=== PATIENT | female | born 1970 | race Caucasian/White ===

== ENCOUNTER 2019-07-04 17:38 | Emergency (ER) | payer MEDICARE, SELFPAY ==
[2019-07-04] VITALS (9 sets, daily range): BP systolic 113–167; BP diastolic 79–106; PULSE 85–126; RESP 17–20; TEMP 36.6; O2SAT 96–100; BMI 35.7
--- NOTE | 2019-07-04 17:42 | ED_ITS ---
Entered by Kp Jim, acting as scribe for Fer Ovalle DO Documented by User: Tessie Curtis 07/04/19 22:28 HPI - Nausea/Vomiting/Diarrhea General: Chief complaint: Abdominal Pain Stated complaint: abd pain Time Seen by Provider: 07/04/19 17:39 [facility] ED PFSH: Statuses (acute, chronic, etc) shown below reflect problem list status as previously entered and may not be historically accurate Social History (Updated 07/04/19 @ 17:48 by Kp Jim) Smoking and tobacco status: heavy tobacco smoker Course Vital Signs: Vital signs: Vital Signs Temperature 97.8 F 07/04/19 17:39 Pulse Rate 85 07/04/19 23:50 Respiratory Rate 18 07/04/19 23:50 Blood Pressure 119/79 07/04/19 23:50 Pulse Oximetry 99 07/04/19 23:50 MDM - Nausea/Vomiting/Diarrhea MDM Narrative: Medical decision making narrative: 2023 -the patient is feeling better at this time. Her diarrhea has slowed. Her diarrhea is nonbloody and she has not been exposed to any recent C. difficile or has she been on any antibiotics recently. I will give her some more medicine for pain and nausea before going. I will give her 1 dose of Cipro which should help shorten the course of this illness. I will send her home with medicine for nausea and diarrhea. The patient states that she is feeling better and would like to go home. Her repeat exam by me shows no signs of peritonitis on exam, her heart rate is regular with a normal rate. She has no shortness of breath or re spiratory distress. And her mentation is normal. Her abdomen is nontender there is no sign of peritonitis. The patient does understand she will need to return if she worsens but at this time she is feeling better and is ready to go home. Lab Data: Attestation: I reviewed the patient's lab results. Labs: Lab Results 07/04/19 07/04/19 07/04/19 Range/Units 18:13 18:13 18:13 WBC 10.1 H (4.0-10.0) 10^3/ uL RBC 5.02 (4.1-5.3) 10^6/u L Hgb 14.8 (11.5-15.3) g/dL Hct 46.0 (37.0-47.0) % MCV 91.6 (81-99) fL MCH 29.5 (28.0-34.0) pg MCHC 32.2 (30.0-36.0) g/dL RDW 12.4 (12.1-15.1) % Plt Count 302 (130-400) 10^3/c mm MPV 10.2 (7.4-10.4) fL Neut % (Auto) 68.3 % Lymph % (Auto) 17.7 % [place] % (Auto) 9.3 % Eos % (Auto) 3.8 % Baso % (Auto) 0.4 % Neut # (Auto) 6.9 (1.8-7.7) 10^3/u L Lymph # (Auto) 1.8 (0.8-4.8) 10^3/u L [place] # (Auto) 0.9 (0.2-0.9) 10^3/u L Eos # (Auto) 0.4 (0.0-0.8) 10^3/u L Baso # (Auto) 0.0 (0.0-0.1) 10^3/u L Nucleated RBC % (a uto) 0 % Nucleated RBCs # 0.0 /100WBC Sodium 138 (136-145) mmol/L Potassium 3.7 (3.5-5.1) mmol/L Chloride 105 (98-107) mmol/L Carbon Dioxide 17 L (22-29) mmol/L Anion Gap 19.7 H (5-19) BUN 22 H (6-20) mg/dL Creatinine 0.8 (0.5-0.9) mg/dL GFR Calculation 76.6 L (90-130) mL/min Glucose 80 (74-109) mg/dL Calcium 10.1 H (8.6-10.0) mg/Dl Total Bilirubin 0.2 (0.15-1.2) mg/dL AST 22 (0-32) U/L ALT 26 (0-33) U/L Alkaline Phosphata se 95 (35-105) IU/L Total Protein 7.7 (6.6-8.7) g/dL Albumin 4.3 (3.5-5.2) g/dL Globulin 3.4 (1.3-4.6) g/dL Lipase 29 (13-60) U/L Ser , Marlene i-Qnt 3.53 mIU/mL Urine Color (Yellow) Urine Appearance (CLEAR) Urine pH (5-7) Ur Specific Gravit y (1.005-1.030) Urine Protein (Negative) Urine Glucose (UA) (Normal) Urine Ketones (Negative) Urine Occult Blood (Negative) Urine Nitrate (Negative) Urine Bilirubin (NEGATIVE) Urine Urobilinogen (Negative) mg/dL Ur Leukocyte Elizabeth ase (Negative) Urine RBC (0-2) /hpf Urine WBC (0-5) /hpf Ur Squamous Epith Cells (0-5) Urine Bacteria (NONE) Urine Mucus 07/04/19 Range/Units 21:20 WBC (4.0-10.0) 10^3/ uL RBC (4.1-5.3) 10^6/u L Hgb (11.5-15.3) g/dL Hct (37.0-47.0) % MCV (81-99) fL MCH (28.0-34.0) pg MCHC (30.0-36.0) g/dL RDW (12.1-15.1) % Plt Count (130-400) 10^3/c mm MPV (7.4-10.4) fL Neut % (Auto) % Lymph % (Auto) % [place] % (Auto) % Eos % (Auto) % Baso % (Auto) % Neut # (Auto) (1.8-7.7) 10^3/u L Lymph # (Auto) (0.8-4.8) 10^3/u L [place] # (Auto) (0.2-0.9) 10^3/u L Eos # (Auto) (0.0-0.8) 10^3/u L Baso # (Auto) (0.0-0.1) 10^3/u L Nucleated RBC % (a uto) % Nucleated RBCs # /100WBC Sodium (136-145) mmol/L Potassium (3.5-5.1) mmol/L Chloride (98-107) mmol/L Carbon Dioxide (22-29) mmol/L Anion Gap (5-19) BUN (6-20) mg/dL Creatinine (0.5-0.9) mg/dL GFR Calculation (90-130) mL/min Glucose (74-109) mg/dL Calcium (8.6-10.0) mg/Dl Total Bilirubin (0.15-1.2) mg/dL AST (0-32) U/L ALT (0-33) U/L Alkaline Phosphata se (35-105) IU/L Total Protein (6.6-8.7) g/dL Albumin (3.5-5.2) g/dL Globulin (1.3-4.6) g/dL Lipase (13-60) U/L Ser , Marlene i-Qnt mIU/mL Urine Color Straw (Yellow) Urine Appearance Clear (CLEAR) Urine pH 5 (5-7) Ur Specific Gravit y 1.015 (1.005-1.030) Urine Protein Neg (Negative) Urine Glucose (UA) Norm (Normal) Urine Ketones Negative (Negative) Urine Occult Blood 3+ H (Negative) Urine Nitrate Negative (Negative) Urine Bilirubin Neg (NEGATIVE) Urine Urobilinogen Norm (Negative) mg/dL Ur Leukocyte Elizabeth ase Negative (Negative) Urine RBC 5-10 H (0-2) /hpf Urine WBC Rare (0-5) /hpf Ur Squamous Epith Cells 0-4 H (0-5) Urine Bacteria Trace (NONE) Urine Mucus Trace Discharge Plan Discharge Patient Disposition: Home, Self-Care Clinical Impression: Gastroenteritis Condition: Stable Prescriptions: New Zofran 4 mg tablet 4 mg PO DAILY PRN (Reason: nausea and vomiting) 5 Days Qty: 20 RF: 0 dicyclomine 20 mg tablet 20 mg PO QID 5 Days Qty: 20 RF: 0 No Action gabapentin 800 mg tablet 800 mg PO TID RF: 0 ibuprofen 800 mg tablet 800 mg PO BID RF: 0 escitalopram oxalate [Lexapro] 20 mg tablet 20 mg PO QDAY RF: 0 ketorolac 10 mg tablet 10 mg PO TID PRNRF: 0 tizanidine 4 mg capsule 4 mg PO TID PRNRF: 0 topiramate [Topamax] 200 mg tablet 200 mg PO BID RF: 0 aripiprazole [Abilify] 2 mg tablet 2 mg PO QDAY RF: 0 trazodone 50 mg tablet 50 mg PO .at night RF: 0 clonazepam 0.5 mg tablet 0.5 mg PO TID PRNRF: 0 ondansetron 4 mg tablet,disintegrating 4 mg PO Q6H PRN (Reason: nausea and vomiting) Qty: 20 RF: 0 Discharge Orders: Discharge Order (Routine); Ordered 07/04/19 Ordered By: Tessie Curtis Referrals: Maury Lutz [Family Provider] - Discharge Diet: Clear Liquid Discharge Activity: Increase activity as tolerated Patient Instructions: Gastroenteritis (ED), Acute Nausea and Vomiting (ED) Activity Restrictions/Additional Instructions: Please return to the ER immediately for any of the signs or symptoms listed on your discharge instruction sheets, worsening/changing of your symptoms, you are not getting better as quickly as expected, or for ANY other cause or concerns. Discharge Date/Time: 07/04/19 23:51 Coding Level of Care Code ED Greige Goods Examiner for Chg Fwd Exam Problem Focused Documented by User: Fer Ovalle DO 07/06/19 14:36 HPI - Nausea/Vomiting/Diarrhea General: Chief complaint: Abdominal Pain Stated complaint: abd pain Time Seen by Provider: 07/04/19 17:39 History of Present Illness: HPI Narrative: 48 yo female presents with nausea, vomiting and diarrhea. Pt states that she has some shortness of breath and a minimally productive cough. Pt states that she has some RUQ pain. Pt states that her diarrhea is green. MD elicited complaint: nausea, vomiting, diarrhea and abdominal pain Onset (ago): day(s) Description of vomiting: watery Description of diarrhea: other (green) Associated nausea: Yes Associated abdominal pain: Yes Location of pain: RUQ Severity: moderate Quality: cramping and aching Context: smoking Associated symtoms: Reports cough, nausea and short of breath; Denies anxiety, change in vision, chest pain, dizziness, dysuria, fatigue, headache(s), malaise, palpitations or syncope Review of Systems Const: Denies: fever, chills, body aches, fatigue, malaise or night sweats Eyes: Denies: change in vision or blurry vision ENMT: Denies: throat pain, oral sores/lesions, dental pain, nasal discharge or nasal congestion Card: Denies: chest pain, palpitations, irregular heart rhythm, edema, syncope, shortness of breath on exertion, shortness of breath when lying down or leg pain with exertion Resp: Denies: shortness of breath, productive cough, non-productive cough or wheezing GI: Reports: nausea : Denies: flank pain, painful urination, urinary frequency, urinary urgency, urinary incontinence or blood in urine Musc: Denies: neck pain, back pain, extremity pain, extremity swelling, joint pain or joint swelling Skin/Breast: Denies: rash, itching or redness Neuro: Denies: headache, numbness in extremities, weakness in extremities, changes in sensation, lack of coordination, difficulty walking, frequent falls, dizziness, vertigo or confusion Psych: Denies: anxiety, depression, loss of interest, visual hallucinations, auditory hallucinations, suicidal ideation or homicidal ideation Endo: Denies: excessive urination, excessive thirst, tired all the time or cold intolerance Michael/Lymph: Denies: easy bruising, easy bleeding, petechiae, enlarged lymph nodes or tender lymph nodes PFSH ED PFSH: Statuses (acute, chronic, etc) shown below reflect problem list status as previously entered and may not be historically accurate Social History (Updated 07/04/19 @ 17:48 by Kp Jim) Smoking and tobacco status: heavy tobacco smoker Physical Exam Const: COMMON NORMALS: average body habitus, oriented x3 and alert GENERAL APPEARANCE: cooperative, comfortable, well kempt and well developed NUTRITIONAL APPEARANCE: obese ORIENTATION/CONSCIOUSNESS: Yes awake, Yes oriented to person and Yes oriented to place HENMT: COMMON NORMALS: normocephalic, head/scalp atraumatic, EAC's normal, TM's normal bilaterally, external nose normal, moist oral mucous membranes and oropharynx normal HEAD & SCALP: normocephalic and atraumatic NOSE: external nose normal EXTERNAL AUDITORY CANAL: EAC's normal TYMPANIC MEMBRANE: TM's normal bilaterally MOUTH: oral and palatal mucosa normal, lip normal and tongue normal THROAT: posterior oropharynx normal and tonsils normal Eye: COMMON NORMALS: PERRL, EOMs intact bilaterally, conjunctivae normal and no scleral icterus CONJUNCTIVA: Yes conjunctivae normal PUPIL: Yes PERRL Neck/C-Spine: COMMON NORMALS: full ROM, no lymphadenopathy, supple, no meningeal signs and thyroid normal THYROID: thyroid normal and asymmetrical Lymph: LYMPHATIC: no lymphadenopathy noted Resp: COMMON NORMALS: normal respiratory effort, no retractions, no use of accessory muscles and clear to auscultation bilaterally AUSCULTATION: clear to auscultation bilaterally Cardio: COMMON NORMALS: regular rate and regular rhythm RATE: regular rate RHYTHM: regular rhythm HEART SOUNDS: no murmurs GI: COMMON NORMALS: normal to inspection, nondistended, normoactive bowel sounds, soft to palpation and no hepatosplenomegaly PALPATION: Yes soft, Yes tender Details: RUQ and Yes no hepatosplenomegaly : COMMON NORMALS: Yes no CVA tenderness BLADDER/KIDNEY EXAM: Yes no CVA tenderness Back/Pelvis: COMMON NORMALS: no CVA tenderness LUMBAR SPINE/LOWER BACK: Yes normal to inspection Extremity: COMMON NORMALS: no clubbing, cyanosis or edema, no calf tenderness and no pedal edema Neuro: COMMON NORMALS: oriented x3 SENSORIUM/ORIENTATION: Yes alert, Yes oriented to person and Yes oriented to place MENINGEAL SIGNS: Yes no meningeal signs Psych: APPEARANCE: Yes well kempt Skin: COMMON NORMALS: no rashes or lesions noted and skin turgor normal GENERAL SKIN EXAM: no rashes or lesions noted and turgor normal Course Vital Signs: Vital signs: Vital Signs Temperature 97.8 F 07/04/19 17:39 Pulse Rate 85 07/04/19 23:50 Respiratory Rate 18 07/04/19 23:50 Blood Pressure 119/79 07/04/19 23:50 Pulse Oximetry 99 07/04/19 23:50 MDM - Nausea/Vomiting/Diarrhea Lab Data: Labs: Lab Results 07/04/19 07/04/19 07/04/19 Range/Units 18:13 18:13 18:13 WBC 10.1 H (4.0-10.0) 10^3/ uL RBC 5.02 (4.1-5.3) 10^6/u L Hgb 14.8 (11.5-15.3) g/dL Hct 46.0 (37.0-47.0) % MCV 91.6 (81-99) fL MCH 29.5 (28.0-34.0) pg MCHC 32.2 (30.0-36.0) g/dL RDW 12.4 (12.1-15.1) % Plt Count 302 (130-400) 10^3/c mm MPV 10.2 (7.4-10.4) fL Neut % (Auto) 68.3 % Lymph % (Auto) 17.7 % [place] % (Auto) 9.3 % Eos % (Auto) 3.8 % Baso % (Auto) 0.4 % Neut # (Auto) 6.9 (1.8-7.7) 10^3/u L Lymph # (Auto) 1.8 (0.8-4.8) 10^3/u L [place] # (Auto) 0.9 (0.2-0.9) 10^3/u L Eos # (Auto) 0.4 (0.0-0.8) 10^3/u L Baso # (Auto) 0.0 (0.0-0.1) 10^3/u L Nucleated RBC % (a uto) 0 % Nucleated RBCs # 0.0 /100WBC Sodium 138 (136-145) mmol/L Potassium 3.7 (3.5-5.1) mmol/L Chloride 105 (98-107) mmol/L Carbon Dioxide 17 L (22-29) mmol/L Anion Gap 19.7 H (5-19) BUN 22 H (6-20) mg/dL Creatinine 0.8 (0.5-0.9) mg/dL GFR Calculation 76.6 L (90-130) mL/min Glucose 80 (74-109) mg/dL Calcium 10.1 H (8.6-10.0) mg/Dl Total Bilirubin 0.2 (0.15-1.2) mg/dL AST 22 (0-32) U/L ALT 26 (0-33) U/L Alkaline Phosphata se 95 (35-105) IU/L Total Protein 7.7 (6.6-8.7) g/dL Albumin 4.3 (3.5-5.2) g/dL Globulin 3.4 (1.3-4.6) g/dL Lipase 29 (13-60) U/L Ser , Marlene i-Qnt 3.53 mIU/mL Urine Color (Yellow) Urine Appearance (CLEAR) Urine pH (5-7) Ur Specific Gravit y (1.005-1.030) Urine Protein (Negative) Urine Glucose (UA) (Normal) Urine Ketones (Negative) Urine Occult Blood (Negative) Urine Nitrate (Negative) Urine Bilirubin (NEGATIVE) Urine Urobilinogen (Negative) mg/dL Ur Leukocyte Elizabeth ase (Negative) Urine RBC (0-2) /hpf Urine WBC (0-5) /hpf Ur Squamous Epith Cells (0-5) Urine Bacteria (NONE) Urine Mucus 07/04/19 Range/Units 21:20 WBC (4.0-10.0) 10^3/ uL RBC (4.1-5.3) 10^6/u L Hgb (11.5-15.3) g/dL Hct (37.0-47.0) % MCV (81-99) fL MCH (28.0-34.0) pg MCHC (30.0-36.0) g/dL RDW (12.1-15.1) % Plt Count (130-400) 10^3/c mm MPV (7.4-10.4) fL Neut % (Auto) % Lymph % (Auto) % [place] % (Auto) % Eos % (Auto) % Baso % (Auto) % Neut # (Auto) (1.8-7.7) 10^3/u L Lymph # (Auto) (0.8-4.8) 10^3/u L [place] # (Auto) (0.2-0.9) 10^3/u L Eos # (Auto) (0.0-0.8) 10^3/u L Baso # (Auto) (0.0-0.1) 10^3/u L Nucleated RBC % (a uto) % Nucleated RBCs # /100WBC Sodium (136-145) mmol/L Potassium (3.5-5.1) mmol/L Chloride (98-107) mmol/L Carbon Dioxide (22-29) mmol/L Anion Gap (5-19) BUN (6-20) mg/dL Creatinine (0.5-0.9) mg/dL GFR Calculation (90-130) mL/min Glucose (74-109) mg/dL Calcium (8.6-10.0) mg/Dl Total Bilirubin (0.15-1.2) mg/dL AST (0-32) U/L ALT (0-33) U/L Alkaline Phosphata se (35-105) IU/L Total Protein (6.6-8.7) g/dL Albumin (3.5-5.2) g/dL Globulin (1.3-4.6) g/dL Lipase (13-60) U/L Ser , Marlene i-Qnt mIU/mL Urine Color Straw (Yellow) Urine Appearance Clear (CLEAR) Urine pH 5 (5-7) Ur Specific Gravit y 1.015 (1.005-1.030) Urine Protein Neg (Negative) Urine Glucose (UA) Norm (Normal) Urine Ketones Negative (Negative) Urine Occult Blood 3+ H (Negative) Urine Nitrate Negative (Negative) Urine Bilirubin Neg (NEGATIVE) Urine Urobilinogen Norm (Negative) mg/dL Ur Leukocyte Elizabeth ase Negative (Negative) Urine RBC 5-10 H (0-2) /hpf Urine WBC Rare (0-5) /hpf Ur Squamous Epith Cells 0-4 H (0-5) Urine Bacteria Trace (NONE) Urine Mucus Trace Discharge Plan Discharge Patient Disposition: Home, Self-Care Clinical Impression: Gastroenteritis Condition: Stable Prescriptions: New Zofran 4 mg tablet 4 mg PO DAILY PRN (Reason: nausea and vomiting) 5 Days Qty: 20 RF: 0 dicyclomine 20 mg tablet 20 mg PO QID 5 Days Qty: 20 RF: 0 No Action gabapentin 800 mg tablet 800 mg PO TID RF: 0 ibuprofen 800 mg tablet 800 mg PO BID RF: 0 escitalopram oxalate [Lexapro] 20 mg tablet 20 mg PO QDAY RF: 0 ketorolac 10 mg tablet 10 mg PO TID PRNRF: 0 tizanidine 4 mg capsule 4 mg PO TID PRNRF: 0 topiramate [Topamax] 200 mg tablet 200 mg PO BID RF: 0 aripiprazole [Abilify] 2 mg tablet 2 mg PO QDAY RF: 0 trazodone 50 mg tablet 50 mg PO .at night RF: 0 clonazepam 0.5 mg tablet 0.5 mg PO TID PRNRF: 0 ondansetron 4 mg tablet,disintegrating 4 mg PO Q6H PRN (Reason: nausea and vomiting) Qty: 20 RF: 0 Discharge Orders: Discharge Order (Routine); Ordered 07/04/19 Ordered By: Tessie Curtis Referrals: Maury Lutz [Family Provider] - Discharge Diet: Clear Liquid Discharge Activity: Increase activity as tolerated Patient Instructions: Gastroenteritis (ED), Acute Nausea and Vomiting (ED) Activity Restrictions/Additional Instructions: Please return to the ER immediately for any of the signs or symptoms listed on your discharge instruction sheets, worsening/changing of your symptoms, you are not getting better as quickly as expected, or for ANY other cause or concerns. Discharge Date/Time: 07/04/19 23:51 Coding Level of Care Code ED Greige Goods Examiner for Chg Fwd Exam Problem Focused The documentation recorded by the Hernán beltran Kialy, accurately reflects the service I personally performed and the decisions made by , Fer Ovalle, Jul 04, 2019 17:38
--- NOTE | 2019-07-04 17:46 | USR_ITS ---
PROCEDURE INFORMATION: Exam: US Abdomen Limited, Right Upper Quadrant Exam date and time: 07/04/2019 6:03 PM Age: 48 years old Clinical indication: Nausea and vomiting; Additional info: Ruq abd pain TECHNIQUE: Imaging protocol: Real-time ultrasound of the abdomen with image documentation. Examination was focused on the right upper quadrant. COMPARISON: No relevant prior studies available. FINDINGS: Liver: Unremarkable. Gallbladder: Contracted (patient not NPO). No gallstones. No gallbladder wall thickening or pericholecystic fluid. Negative sonographic Rodarte's sign, as per the performing design assistant. Common bile duct: No stones. No ductal dilatation. Pancreas: Suboptimally visualized. Right kidney: No mass. No definite stones. No hydronephrosis. US/US gall bladder [id number] IMPRESSION: No acute sonographic findings.
[2019-07-04 18:21] LABS: Basophils % 0.4 %; Eosinophils # 0.4 10^3/uL (0.0-0.8); Eosinophils % 3.8 %; Hemoglobin 14.8 g/dL (11.5-15.3); Lymphocytes # 1.8 10^3/uL (0.8-4.8); Lymphocytes % 17.7 %; Mean Corpuscular HGB Conc 32.2 g/dL (30.0-36.0); Mean Corpuscular Hemoglobin 29.5 pg (28.0-34.0); Mean Corpuscular Volume 91.6 fL (81-99); Mean Platelet Volume 10.2 fL (7.4-10.4); Monocytes # 0.9 10^3/uL (0.2-0.9); Monocytes % 9.3 %; Neutrophils # 6.9 10^3/uL (1.8-7.7); Neutrophils % 68.3 %; Nucleated Red Blood Cells % 0 %; Platelet Count 302 10^3/cmm (130-400); Red Blood Count 5.02 10^6/uL (4.1-5.3); Red Cell Distribution Width 12.4 % (12.1-15.1); White Blood Count 10.1 10^3/uL (4.0-10.0)
[2019-07-04 18:38] LABS: Alanine Aminotransferase 26 U/L (0-33); Albumin Level 4.3 g/dL (3.5-5.2); Alkaline Phosphatase 95 IU/L (35-105); Anion Gap 19.7 (5-19); Blood Urea Nitrogen 22 mg/dL (6-20); Calcium 10.1 mg/Dl (8.6-10.0); Carbon Dioxide 17 mmol/L (22-29); Chloride 105 mmol/L (98-107); Globulin 3.4 g/dL (1.3-4.6); Glomerular Filtration Rate 76.6 mL/min (90-130); Glucose 80 mg/dL (74-109); Lipase 29 U/L (13-60); Potassium 3.7 mmol/L (3.5-5.1); Sodium 138 mmol/L (136-145); Total Bilirubin 0.2 mg/dL (0.15-1.2); Total Protein 7.7 g/dL (6.6-8.7)
--- NOTE | 2019-07-04 18:39 | PC.NURSE ---
Ultrasound performed at bedside
--- NOTE | 2019-07-04 18:40 | PC.NURSE ---
Pt unable to void at this time.
--- NOTE | 2019-07-04 18:41 | XR_ITS ---
WS: [id number] ABDOMEN KUB CLINICAL INFORMATION: Abdominal pain COMPARISON: None. FINDINGS: Fluid distention of the stomach. Fluid-filled loops of small bowel. Persistent air within normal hiram burak colon. No evidence of high-grade obstruction. XR/XR KUB [id number] Impression: 1. Fluid-filled stomach. 2. Fluid-filled loops of small bowel with persistent air within the colon. No evidence of high-grade obstruction.
[2019-07-04 18:47] LABS: Aspartate Amino Transferase 22 U/L (0-32)
[2019-07-04] MEDS: sodium chloride 0.9% 1,000 ML 999 ML IV ×2 (19:35→21:57)
--- NOTE | 2019-07-04 20:20 | CTR_ITS ---
PROCEDURE INFORMATION: Exam: CT Abdomen And Pelvis With Contrast Exam date and time: 07/04/2019 9:26 PM Age: 48 years old Clinical indication: Nausea and vomiting and other: Diarrhea; Additional info: Abd pain TECHNIQUE: Imaging protocol: Computed tomography of the abdomen and pelvis with intravenous contrast. Axial, coronal and sagittal reformatted images were created and reviewed. Total DLP: 1679.66 mGy-cm Radiation optimization: All CT scans at this facility use at least one of these dose optimization techniques: automated exposure control; mA and/or kV adjustment per patient size (includes targeted exams where dose is matched to clinical indication); or iterative reconstruction. Contrast material: OMNIPAQUE 300; Contrast volume: 95 ml; Contrast route: IV; COMPARISON: US gall bladder [id number] 07/04/2019 6:15 PM FINDINGS: Liver: Unremarkable. Gallbladder and bile ducts: No radiodense gallstones. No biliary ductal dilatation. Pancreas: Unremarkable. Spleen: Unremarkable. Adrenals: Unremarkable. Kidneys and ureters: Subcentimeter low-density renal lesions bilaterally, measuring up to 9 mm on the right, too small to characterize. Nonobstructing left renal calculus. No hydronephrosis. Stomach and bowel: Non dilated, fluid-filled, mildly hyperemic loops of small bowel, some of which appear mildly thickened. Liquefied stool with air-fluid levels in the right colon. Scattered colonic diverticula without evidence of diverticulitis. No obstruction. No pneumatosis. Appendix: Normal. Intraperitoneal space: No free fluid. No organized fluid collection. No free air. Vasculature: Unremarkable. No aneurysm. Lymph nodes: Small mesenteric lymph nodes, nonspecific in appearance. No pathologically enlarged lymph nodes. Bladder: Unremarkable. Reproductive: Somewhat lobular, heterogeneous uterus, likely due to fibroids. Bones/joints: No acute osseous abnormality. Mild degenerative changes. Soft tissues: Unremarkable. CT/CT abdomen pelvis w con* [id number] IMPRESSION: 1. Query mild gastroenteritis. 2. Additional findings, as above. COMMENT: Consistent with the [place] [employer]'s Incidental Findings Committee Report (J Am Elvira Radiol 2010): Unless the patient's specific circumstances suggest otherwise, any liver lesion 0.5 cm or less, any cystic kidney lesion less than 1.0 cm, and/or any adrenal lesion 1.0 cm or less not otherwise characterized in this report as possessing suspicious or indeterminate imaging features is/are highly likely to be benign and do not require follow-up imaging or biopsy. Radiation Dose CTDIVOL = (mGy): DLP = 1679.66 (mGy-cm)
[2019-07-04] MEDS: ondansetron 2 mg/ML SDV 2 mL 4 MG IVP ×2 (20:36→22:47)
[2019-07-04] MEDS: iohexol 300 mg/mL 100 mL Btl IV (21:30)
[2019-07-04 21:41] LABS: Add Urine Microscopic? YES; Bilirubin Urine Neg (NEGATIVE); Blood Urine 3+ (Negative); Glucose Urine UA Norm (Normal); Ketones Urine Negative (Negative); Leukocyte Esterase Urine Negative (Negative); Nitrate Urine Negative (Negative); Protein Urine Neg (Negative); Specific Gravity, Urine 1.015 (1.005-1.030); Urine Appearance Clear (CLEAR); Urine Color Straw (Yellow); Urobilinogen Urine Norm (Negative); pH Urine 5 (5-7)
[2019-07-04 21:42] LABS: Add Urine Culture? No; Bacteria Urine TRACE; Mucus Urine TRACE; Squamous Epithelial Cell Urine 0-4 (0-5); WBC Urine RARE /hpf (0-5)
[2019-07-04 22:07] LABS: HCG Quantitative 3.53 mIU/mL
[2019-07-04] MEDS: HYDROmorphone 1 mg/mL INJ 1 mL 0.5 MG IVP (22:46)
[2019-07-04] MEDS: ketorolac 30 mg/mL INJ 10 MG IVP (22:47)
[2019-07-04] MEDS: dicyclomine 20 mg Tablet PO (22:49)
[2019-07-04] MEDS: ciprofloxacin 500 mg Tablet PO (22:49)
== END 2019-07-04 23:51 | disposition home or self-care (01) ==
PROVIDERS: Family Medicine; Emergency Provider Emergency Medicine; Family Provider Family Medicine
DX: K52.9 Noninfective gastroenteritis and colitis, unspecified (principal); F17.210 Nicotine dependence, cigarettes, uncomplicated
CPT/HCPCS: 74018; 74177; 76705; 80053; 81003; 83690; 84702; 85025; 87493; 87505; 96360; 96361; 96374; 99283; J1170; J1885; J2405; J7030; Q9967

== ENCOUNTER 2019-08-30 08:23 | Emergency (ER) | payer MEDICARE, SELFPAY ==
--- NOTE | 2019-08-30 08:25 | W.ED.DENTAL ---
HPI - Dental/Oral General: Chief complaint: Dental/Oral Stated complaint: Tooth ache Time Seen by Provider: 08/30/19 08:24 Source: patient History of Present Illness: Teeth map: 1. pain; tenderness, dental decay 2. dental pain Onset (ago): week(s) (1) Severity scale (1-10): 10 Relieving factors: NSAIDs Context: history of dental caries Review of Systems General: Reports: 10 or more systems reviewed and unremarkable except in HPI and below ENMT: Reports: throat pain Card: Reports: palpitations GI: Reports: nausea PFSH ED PFSH: Social History Smoking and tobacco status: current every day smoker Current gender identity: Female Physical Exam Narrative: EXAM NARRATIVE: Pt has been undergoing antibx therapy while waiting to get into dentist on . This am she has been hurting more and unable to get pain under control. Const: COMMON NORMALS: no apparent distress, oriented x3, no limitations and alert GENERAL APPEARANCE: cooperative and comfortable ORIENTATION/CONSCIOUSNESS: Yes awake, Yes oriented to person, Yes oriented to place and Yes oriented to time HENMT: COMMON NORMALS: normocephalic, head/scalp atraumatic, external ears normal, EAC's normal, TM's normal bilaterally and external nose normal HEAD & SCALP: normal to inspection, normocephalic and atraumatic FACE & SINUS: normal facial exam, sinuses nontender and face symmetric NOSE: external nose normal, nares normal and no nasal discharge EXTERNAL EAR: Yes external ears normal EXTERNAL AUDITORY CANAL: EAC's normal TYMPANIC MEMBRANE: TM's normal bilaterally MOUTH: oral and palatal mucosa normal, lip normal and tongue normal THROAT: tonsils normal Eye: COMMON NORMALS: PERRL, EOMs intact bilaterally and conjunctivae normal GENERAL EYE: normal appearance of both eyes and normal light reflex EYELID: eyelids normal CONJUNCTIVA: Yes conjunctivae normal PUPIL: Yes PERRL EOM: Yes EOM abnormal DIRECT OPHTHALMOSCOPY: Yes normal light reflex Neck/C-Spine: COMMON NORMALS: full ROM, no lymphadenopathy, supple, no meningeal signs, no JVD and thyroid normal GENERAL: Yes normal visual inspection THYROID: thyroid normal CERVICAL SPINE: Yes cervical ROM normal and Yes normal cervical lordosis Lymph: LYMPHATIC: no lymphadenopathy noted Chest: COMMONS NORMALS: inspection of chest normal and palpation of chest normal Resp: COMMON NORMALS: normal respiratory effort, no retractions and clear to auscultation bilaterally AUSCULTATION: clear to auscultation bilaterally Cardio: COMMON NORMALS: no JVD, regular rate, regular rhythm, S1 normal heart sound, S2 normal heart sound, no gallops, no clicks, no murmurs, no rub and peripheral pulses 2+ throughout RATE: regular rate RHYTHM: regular rhythm HEART SOUNDS: S1 normal and S2 normal PERIPHERAL PULSES: pulses 2+ throughout GI: COMMON NORMALS: normal to inspection, nondistended, normoactive bowel sounds, soft to palpation, non-tender and no masses PALPATION: Yes soft : COMMON NORMALS: Yes no CVA tenderness and Yes external appearance normal BLADDER/KIDNEY EXAM: Yes no CVA tenderness Back/Pelvis: COMMON NORMALS: no CVA tenderness, thoracic and lumbar spine normal to inspection, no thoracic nor lumbar tenderness and thoraco-lumbar ROM normal Extremity: COMMON NORMALS: normal to inspection, full ROM, normal capillary refill, no joint enlargement, no clubbing, cyanosis or edema, no calf tenderness and no pedal edema GENERAL: Yes normal exam except as noted Neuro: COMMON NORMALS: oriented x3, moves all extremities, no focal motor deficits, no sensory deficits noted and gait normal SENSORIUM/ORIENTATION: Yes alert, Yes oriented to person, Yes oriented to place and Yes oriented to time MENINGEAL SIGNS: Yes no meningeal signs Psych: COMMON NORMALS: mental status grossly normal, thought process normal, cooperative, affect normal, speech normal and activity/motor behavior normal SPEECH: Yes normal speech THOUGHT PROCESS: normal thought process Skin: COMMON NORMALS: no rashes or lesions noted, no wounds and skin turgor normal GENERAL SKIN EXAM: no rashes or lesions noted and turgor normal Course ED course: Labs and imaging ordered Reevaluation(s): Reevaluation #1: Pain vitals improved; pain still 10/10. Pain meds ordered. Time: 09:03 Reevaluation #2: Pain improved. Ct negative for abscess. EKG unremarkable. No CP. Vitals improved. Will dc with change in oral antibx and pain meds and follow up with dentist as scheduled. Time: 09:57 Vital Signs: Vital signs: Vital Signs Temperature 97.5 F L 08/30/19 08:28 Pulse Rate 83 08/30/19 09:08 Respiratory Rate 17 08/30/19 09:51 Blood Pressure 113/77 08/30/19 09:08 Pulse Oximetry 98 08/30/19 09:08 MDM - Dental/Oral Lab Data: Labs: Lab Results 08/30/19 Range/Units 08:43 WBC 6.3 (4.0-10.0) 10^3/ uL RBC 4.53 (4.1-5.3) 10^6/u L Hgb 13.7 (11.5-15.3) g/dL Hct 42.8 (37.0-47.0) % MCV 94.5 (81-99) fL MCH 30.2 (28.0-34.0) pg MCHC 32.0 (30.0-36.0) g/dL RDW 12.7 (12.1-15.1) % Plt Count 271 (130-400) 10^3/c mm MPV 9.7 (7.4-10.4) fL Neut % (Auto) 53.2 % Lymph % (Auto) 30.9 % [place] % (Auto) 9.7 % Eos % (Auto) 4.5 % Baso % (Auto) 1.1 % Neut # (Auto) 3.3 (1.8-7.7) 10^3/u L Lymph # (Auto) 1.9 (0.8-4.8) 10^3/u L [place] # (Auto) 0.6 (0.2-0.9) 10^3/u L Eos # (Auto) 0.3 (0.0-0.8) 10^3/u L Baso # (Auto) 0.1 (0.0-0.1) 10^3/u L Nucleated RBC % (a uto) 0 % Nucleated RBCs # 0.0 /100WBC Imaging Data^: Other CT: Radiologist's impression: [address] [place] [address] CT Scan Report Signed Patient: Jaelyn Finley Unit #: [id number] : 1970 Age/Sex: 48 / F ADM Date: 08/30/19 Loc: ER Room/Bed: Attending Dr: Ordering Provider/Ordering MD: Urszula Lambert NP Date of Service: 08/30/19 Procedure(s): CT neck w con* [id number] Accession Number(s): [id number] Report Number: [id number] WS: [id number] CT scan of the neck. Additional two-dimensional coronal and sagittal reconstruction was performed. Clinical Data: dental abscess Comparison: None. DLP: 693.[address] scans at [facility] use at least one of these dose optimization techniques: automated exposure control; mA and/or kV adjustment per patient size (includes targeted exams where dose is matched to clinical indication); or iterative reconstruction. Findings: No lymphadenopathy is noted. No soft tissue abscess adjacent to the mandible or maxilla is seen. The salivary glands are unremarkable. There is no prevertebral soft tissue swelling. The larynx is symmetric. The thyroid gland shows normal enhancement. The floor of the mouth and parapharyngeal spaces are normal. The oral cavity is unremarkable. The carotid arteries bifurcate normally. The cervical spine is unremarkable. The mandible and maxilla show no abnormalities. The lung apices show no abnormalities. The portions of the intracranial circulation which are seen demonstrate no abnormalities. No erosion of the skull or skull base is seen. CT/CT neck w con* [id number] Impression: Negative CT scan of the neck. Dictated By: Reema Lee MD Signed By: Reema Lee MD Signed Date/Time: 08/30/19946 DD/ 2 Discharge Plan Discharge Patient Disposition: Home, Self-Care Clinical Impression: Toothache, Dental caries Condition: Stable Prescriptions: New clindamycin HCl 300 mg capsule 300 mg PO BID 7 Days Qty: 14 RF: 0 acetaminophen-codeine [Tylenol-Codeine #3] 300-30 mg tablet 1 tab PO Q8H Qty: 10 RF: 0 Lidocaine Viscous 2 % solution 1 applic MUCOUS MEM Q6H Qty: 15 RF: 0 No Action gabapentin 800 mg tablet 800 mg PO TID RF: 0 ibuprofen 800 mg tablet 800 mg PO BID RF: 0 escitalopram oxalate [Lexapro] 20 mg tablet 20 mg PO QDAY RF: 0 ketorolac 10 mg tablet 10 mg PO TID PRNRF: 0 tizanidine 4 mg capsule 4 mg PO TID PRNRF: 0 topiramate [Topamax] 200 mg tablet 200 mg PO BID RF: 0 aripiprazole [Abilify] 2 mg tablet 2 mg PO QDAY RF: 0 trazodone 50 mg tablet 50 mg PO .at night RF: 0 clonazepam 0.5 mg tablet 0.5 mg PO TID PRNRF: 0 ondansetron 4 mg tablet,disintegrating 4 mg PO Q6H PRN (Reason: nausea and vomiting) Qty: 20 RF: 0 amoxicillin-pot clavulanate [Augmentin] 875-125 mg tablet 1 tab PO BID 10 Days Qty: 20 RF: 0 Referrals: Maury Lutz [Family Provider] - Berry Hinton APN [Primary Care Provider] - Discharge Diet: Usual diet Discharge Activity: Resume usual activity Activity Restrictions/Additional Instructions: Follow up with dentist as scheduled. May stop Augmentin and begin clindamycin. Stand Alone Forms: Work/School Release Coding Level of Care Code ED Short Order Fry Cook for Richardg Fwd Exam Comprehensive
[2019-08-30 08:28] VITALS: BP 168/121; PULSE 86; RESP 16; TEMP 36.4; O2SAT 100; BMI 34.9
[2019-08-30 08:35] VITALS: PULSE 90; RESP 18; O2SAT 100
--- NOTE | 2019-08-30 08:38 | CT_ITS ---
WS: [id number] CT scan of the neck. Additional two-dimensional coronal and sagittal reconstruction was performed. Clinical Data: dental abscess Comparison: None. DLP: 693.[address] scans at [facility] use at least one of these dose optimization techniques: automat ed exposure control; mA and/or kV adjustment per patient size (includes targeted exams where dose is matched to clinical indication); or iterative reconstruction. Findings: No lymphadenopathy is noted. No soft tissue abscess adjacent to the mandible or maxilla is seen. The salivary glands are unremarkable. There is no prevertebral soft tissue swelling. The larynx is symmet magdalena. The thyroid gland shows normal enhancement. The floor of the mouth and parapharyngeal spaces are normal. The oral cavity is unremarkable. The carotid arteries bifurcate normally. The cervical spine is unremarkable. The mandible and maxilla show no abnormalities. The lung apices show no abnormalities. The portions of the intracranial circu lation which are seen demonstrate no abnormalities. No erosion of the skull or skull base is seen. CT/CT neck w con* [id number] Impression: Negative CT scan of the neck.
--- NOTE | 2019-08-30 08:38 | ECG_ITS ---
Measurements Intervals [place] Rate: 78 P: -3 NH: 155 QRS: 20 QRSD: 106 T: 42 QT: 372 QTc: 426 SINUS RHYTHM LOW QRS VOLTAGE IN PRECORDIAL LEADS [QRS DEFLECTION < 1.0 mV IN CHEST LEADS] Compared to ECG 06/04/2018 11:59:53 Low QRS voltage now present Electronically Signed On 08-30-2019 12:45:10 CDT by Janett Og M.D. [email or web address]
[2019-08-30 08:49] LABS: Basophils # 0.1 10^3/uL (0.0-0.1); Basophils % 1.1 %; Eosinophils # 0.3 10^3/uL (0.0-0.8); Eosinophils % 4.5 %; Hematocrit 42.8 % (37.0-47.0); Hemoglobin 13.7 g/dL (11.5-15.3); Lymphocytes # 1.9 10^3/uL (0.8-4.8); Lymphocytes % 30.9 %; Mean Corpuscular Hemoglobin 30.2 pg (28.0-34.0); Mean Corpuscular Volume 94.5 fL (81-99); Mean Platelet Volume 9.7 fL (7.4-10.4); Monocytes # 0.6 10^3/uL (0.2-0.9); Monocytes % 9.7 %; Neutrophils # 3.3 10^3/uL (1.8-7.7); Neutrophils % 53.2 %; Nucleated Red Blood Cells % 0 %; Platelet Count 271 10^3/cmm (130-400); Red Blood Count 4.53 10^6/uL (4.1-5.3); Red Cell Distribution Width 12.7 % (12.1-15.1); White Blood Count 6.3 10^3/uL (4.0-10.0)
[2019-08-30] MEDS: ondansetron 2 mg/ML SDV 2 mL 4 MG IVP (08:49)
[2019-08-30] MEDS: ketorolac 30 mg/mL INJ IVP (08:49)
[2019-08-30] MEDS: clindamycin 600 MG/50 ML PREMIX 100 MG IV (09:03)
[2019-08-30 09:08] VITALS: BP 113/77; PULSE 83; RESP 18; O2SAT 98
[2019-08-30] MEDS: iohexol 300 mg/mL 100 mL Btl IV (09:35)
[2019-08-30 09:51] VITALS: RESP 17
[2019-08-30] MEDS: HYDROmorphone 1 mg/mL INJ 1 mL IVP (09:51)
[2019-08-30 10:26] VITALS: BP 126/83; PULSE 88; RESP 16; O2SAT 98
== END 2019-08-30 10:21 | disposition home or self-care (01) ==
PROVIDERS: Emergency Provider Nurse Practitioner Family; Family Provider Family Medicine; PCP Nurse Practitioner Family
DX: K02.9 Dental caries, unspecified (principal); F17.200 Nicotine dependence, unspecified, uncomplicated
CPT/HCPCS: 12345; 36415; 70491; 85025; 93005; 96365; 96375; 99283; 99284; J1170; J1885; J2405; J3490; Q9967

== ENCOUNTER 2019-12-23 07:12 | Emergency (ER) | payer MEDICARE, SELFPAY ==
[2019-12-23 07:20] VITALS: BP 135/84; PULSE 70; RESP 16; TEMP 36.4; O2SAT 100; BMI 34.9
[2019-12-23 07:30] VITALS: O2SAT 99
--- NOTE | 2019-12-23 07:32 | W.ED.NAVMDI ---
HPI - Nausea/Vomiting/Diarrhea General: Chief complaint: Nausea/Vomiting/Diarrhea Stated complaint: N/V/D AND FEVER, COUGH Time Seen by Provider: 12/23/19 07:17 History of Present Illness: HPI Narrative: Patient states she has had some nausea and diarrhea vomiting over the last week is drink lots of Gatorade just feels weak thinks she might be dehydrated. Not take any exto-iup-aghuslw medicines not sure if she ran a fever has not had any COVID exposure Complains of body aches MD elicited complaint: nausea, vomiting and diarrhea Onset (ago): day(s) Description of vomiting: watery Associated nausea: Yes Associated abdominal pain: No Associated symtoms: Reports nausea; Denies anxiety, change in vision, chest pain or headache(s) Review of Systems Const: Denies: fever(s), chills or body aches Eyes: Denies: change in vision or blurry vision ENMT: Denies: throat pain or nasal congestion Card: Denies: chest pain or dyspnea on exertion Resp: Denies: dyspnea, productive cough or non-productive cough GI: Reports: nausea, vomiting and diarrhea; Denies: abdominal pain Musc: Denies: extremity pain Skin/Breast: Denies: rash Neuro: Denies: headache(s) Psych: Denies: anxiety or depression Michael/Lymph: Denies: easy bruising PFSH ED PFSH: Social History Smoking and tobacco status: current every day smoker Current gender identity: Female Physical Exam Const: COMMON NORMALS: no acute distress, average body habitus and patient oriented x3 HENMT: COMMON NORMALS: normocephalic HEAD & SCALP: normal to inspection and normocephalic FACE & SINUS: normal facial exam Eye: COMMON NORMALS: conjunctivae normal GENERAL EYE: appearance normal, both eyes and all related structures CONJUNCTIVA: Yes conjunctivae normal Neck/C-Spine: COMMON NORMALS: no JVD Chest: COMMONS NORMALS: normal inspection of the chest Resp: COMMON NORMALS: normal respiratory effort and clear to auscultation bilaterally AUSCULTATION: clear to auscultation bilaterally Cardio: COMMON NORMALS: no JVD, regular rate and regular rhythm RATE: regular rate RHYTHM: regular rhythm GI: COMMON NORMALS: Normal to inspection, nondistended, normoactive bowel sounds present Extremity: COMMON NORMALS: normal to inspection and full ROM Neuro: COMMON NORMALS: patient oriented x3 Course Vital Signs: Vital signs: Vital Signs Temperature 97.5 F L 12/23/19 07:20 Pulse Rate 60 12/23/19 10:08 Respiratory Rate 16 12/23/19 07:20 Blood Pressure 121/82 12/23/19 10:08 Pulse Oximetry 98 12/23/19 10:08 MDM - Nausea/Vomiting/Diarrhea MDM Narrative: Medical decision making narrative: Labs were normal discussed with patient did do a COVID test patient basically need a note to say that she did have to go to court today Lab Data: Labs: Lab Results 12/23/19 12/23/19 12/23/19 Range/Units 07:49 07:49 08:58 WBC 5.9 (4.0-10.0) 10^3/ uL RBC 4.35 (4.1-5.3) 10^6/u L Hgb 12.7 (11.5-15.3) g/dL Hct 39.9 (37.0-47.0) % MCV 91.7 (81-99) fL MCH 29.2 (28.0-34.0) pg MCHC 31.8 (30.0-36.0) g/dL RDW 12.6 (12.1-15.1) % Plt Count 226 (130-400) 10^3/c mm MPV 9.5 (7.4-10.4) fL Neut % (Auto) 55.0 % Lymph % (Auto) 30.8 % [place] % (Auto) 7.3 % Eos % (Auto) 4.6 % Baso % (Auto) 0.9 % Neut # (Auto) 3.23 (1.8-7.7) 10^3/u L Lymph # (Auto) 1.8 (0.8-4.8) 10^3/u L [place] # (Auto) 0.4 (0.2-0.9) 10^3/u L Eos # (Auto) 0.3 (0.0-0.8) 10^3/u L Baso # (Auto) 0.1 (0.0-0.1) 10^3/u L Nucleated RBC % (a uto) 0 % Nucleated RBCs # 0.0 /100WBC Sodium 140 (136-145) mmol/L Potassium 3.9 (3.5-5.1) mmol/L Chloride 109 H (98-107) mmol/L Carbon Dioxide 25 (22-29) mmol/L Anion Gap 9.9 (5-19) BUN 13 (6-20) mg/dL Creatinine 0.6 (0.5-0.9) mg/dL GFR Calculation 106.3 (90-130) mL/min Glucose 96 (65-115) mg/dL Calculated Osmolal ity 286 (285-295) mOsm/k g Calcium 9.2 (8.5-10.5) mg/dL Total Bilirubin 0.2 (0.15-1.2) mg/dL AST 14 (0-32) U/L ALT 14 (0-33) U/L Alkaline Phosphata se 105 (35-105) IU/L Total Protein 5.7 L (6.6-8.7) g/dL Albumin 3.7 (3.5-5.2) g/dL Globulin 2.0 (1.3-4.6) g/dL Lipase 28 (13-60) U/L Urine Color Yellow (Yellow) Urine Appearance Sl hazy (CLEAR) Urine pH 5 (5-7) Ur Specific Gravit y 1.015 (1.005-1.030) Urine Protein Neg (Negative) Urine Glucose (UA) Norm (Normal) Urine Ketones Negative (Negative) Urine Blood 3+ H (Negative) Urine Nitrate Negative (Negative) Urine Bilirubin Neg (NEGATIVE) Urine Urobilinogen Norm (Negative) mg/dL Ur Leukocyte Elizabeth ase Negative (Negative) Urine RBC 5-10 H (0-2) /hpf Urine WBC None (0-5) /hpf Ur Squamous Epith Cells 0-4 H (0-5) Amorphous Sediment Not Reportable Urine Bacteria 1+ H (NONE) Discharge Plan Discharge Patient Disposition: Home, Self-Care Clinical Impression: Gastroenteritis Condition: Stable Prescriptions: No Action gabapentin 800 mg tablet 800 mg PO TID RF: 0 ibuprofen 800 mg tablet 800 mg PO BID RF: 0 escitalopram oxalate [Lexapro] 20 mg tablet 20 mg PO DAILY RF: 0 tizanidine 4 mg capsule 4 mg PO TID PRN (Reason: Muscle Pain) RF: 0 topiramate [Topamax] 200 mg tablet 200 mg PO BID RF: 0 aripiprazole [Abilify] 2 mg tablet 2 mg PO DAILY RF: 0 trazodone 50 mg tablet 50 mg PO BEDTIME RF: 0 clonazepam 0.5 mg tablet 0.5 mg PO TID PRN (Reason: Anxiety) RF: 0 Discharge Orders: Discharge Order (Routine); Ordered 12/23/19 Ordered By: Mason Quintero Referrals: Mary Jane Smart APN [Primary Care Provider] - Discharge Diet: Usual diet Discharge Activity: Increase activity as tolerated Patient Instructions: Gastroenteritis (ED) Activity Restrictions/Additional Instructions: Follow-up with medical provider as directed. Drink plenty of fluids. Return to the ER or your medical provider if condition worsens. Please read and understand discharge instructions. If any questions ask please. Stay self quarantine until test results are back which are usually 72 hours Discharge Date/Time: 12/23/19 10:08 Coding Level of Care Code ED Concrete Handler for Gallo Fwjaimee Exam Comprehensive
[2019-12-23 07:56] LABS: Basophils # 0.1 10^3/uL (0.0-0.1); Basophils % 0.9 %; Eosinophils # 0.3 10^3/uL (0.0-0.8); Eosinophils % 4.6 %; Hematocrit 39.9 % (37.0-47.0); Hemoglobin 12.7 g/dL (11.5-15.3); Lymphocytes # 1.8 10^3/uL (0.8-4.8); Lymphocytes % 30.8 %; Mean Corpuscular HGB Conc 31.8 g/dL (30.0-36.0); Mean Corpuscular Hemoglobin 29.2 pg (28.0-34.0); Mean Corpuscular Volume 91.7 fL (81-99); Mean Platelet Volume 9.5 fL (7.4-10.4); Monocytes # 0.4 10^3/uL (0.2-0.9); Monocytes % 7.3 %; Neutrophils # 3.23 10^3/uL (1.8-7.7); Nucleated Red Blood Cells % 0 %; Platelet Count 226 10^3/cmm (130-400); Red Blood Count 4.35 10^6/uL (4.1-5.3); Red Cell Distribution Width 12.6 % (12.1-15.1); White Blood Count 5.9 10^3/uL (4.0-10.0)
[2019-12-23 08:09] LABS: Alanine Aminotransferase 14 U/L (0-33); Albumin Level 3.7 g/dL (3.5-5.2); Alkaline Phosphatase 105 IU/L (35-105); Anion Gap 9.9 (5-19); Aspartate Amino Transferase 14 U/L (0-32); Blood Urea Nitrogen 13 mg/dL (6-20); Calcium 9.2 mg/dL (8.5-10.5); Carbon Dioxide 25 mmol/L (22-29); Chloride 109 mmol/L (98-107); Creatinine Clr Calc Pharmacy 143.3668; Glomerular Filtration Rate 106.3 mL/min (90-130); Glucose 96 mg/dL (65-115); Lipase 28 U/L (13-60); Osmolality Calculated 286 mOsm/kg (285-295); Potassium 3.9 mmol/L (3.5-5.1); Sodium 140 mmol/L (136-145); Total Bilirubin 0.2 mg/dL (0.15-1.2); Total Protein 5.7 g/dL (6.6-8.7)
[2019-12-23] MEDS: ondansetron 2 mg/ML SDV 2 mL 4 MG IM (08:15)
[2019-12-23] MEDS: ondansetron 2 mg/ML SDV 2 mL 4 MG (08:29)
[2019-12-23 09:10] VITALS: BP 100/73; PULSE 66; O2SAT 100
[2019-12-23 09:35] LABS: Specific Gravity, Urine 1.015 (1.005-1.030); Urine Appearance SL Hazy (CLEAR); Urine Color Yellow (Yellow); pH Urine 5 (5-7)
[2019-12-23 09:36] LABS: Add Urine Culture? No; Add Urine Microscopic? YES; Bacteria Urine 1+; Bilirubin Urine Neg (NEGATIVE); Blood Urine 3+ (Negative); Glucose Urine UA Norm (Normal); Ketones Urine Negative (Negative); Leukocyte Esterase Urine Negative (Negative); Nitrate Urine Negative (Negative); Protein Urine Neg (Negative); Squamous Epithelial Cell Urine 0-4 (0-5); Urobilinogen Urine Norm (Negative)
[2019-12-23] MEDS: ketorolac 60 mg/2 mL INJ IM (09:45)
[2019-12-23 10:08] VITALS: BP 121/82; PULSE 60; O2SAT 98
[2019-12-25 07:11] LABS: Quest SARS-CoV-2 RNA NOT DETECTED (NOT DETECTED)
== END 2019-12-23 10:08 | disposition home or self-care (01) ==
PROVIDERS: Emergency Provider Nurse Practitioner Family; PCP Nurse Practitioner Family
DX: K52.9 Noninfective gastroenteritis and colitis, unspecified (principal); F17.210 Nicotine dependence, cigarettes, uncomplicated
CPT/HCPCS: 12345; 36415; 80053; 81001; 81003; 83690; 85025; 87635; 96372; 99283; J1885; J2405

== ENCOUNTER 2020-01-26 18:26 | Emergency (ER) | payer MEDICARE, SELFPAY ==
[2020-01-26] VITALS (8 sets, daily range): BP systolic 122–148; BP diastolic 84–96; PULSE 65–88; RESP 16–26; TEMP 36.6; O2SAT 98–100; BMI 34.9
--- NOTE | 2020-01-26 18:29 | USR_ITS ---
PROCEDURE INFORMATION: Exam: US Retroperitoneal; Complete; Kidneys and Bladder Exam date and time: 01/26/2020 8:34 PM Age: 49 years old Clinical indication: Abdominal pain; Flank; Left lower quadrant (llq); Additional info: Left lower quadrant pain TECHNIQUE: Imaging protocol: Real-time ultrasound of the retroperitoneum with image documentation. Complete exam focused on the kidneys and bladder. COMPARISON: US gall bladder [id number] 07/04/2019 6:15 PM FINDINGS: Right kidney: The right kidney measures 10.3 cm in length. The right kidney is appropriate in echotexture. No stones or hydronephrosis. No right perinephric fluid. Left kidney: The left kidney measures 11.2 cm in length. There is mild left hydronephrosis. No left nephrolithiasis. No left renal mass. Aorta: The aorta is unremarkable measuring 1.7 cm. Inferior vena cava: The visualized inferior vena cava is unremarkable. Bladder: The urinary bladder is partially collapsed in the wall appears mildly thickened and trabeculated compatible with lack of distension. No bladder calculi. US/US renal BI with bladder IMPRESSION: Mild left hydronephrosis. Unremarkable right kidney. The bladder is partially collapsed but otherwise unremarkable.
--- NOTE | 2020-01-26 18:30 | USR_ITS ---
PROCEDURE INFORMATION: Exam: US Pelvis Complete, Transabdominal and US Pelvis, Transvaginal and US Duplex Artery and Vein, Ovaries, Complete Exam date and time: 01/26/2020 9:06 PM Age: 49 years old Clinical indication: Pelvic pain TECHNIQUE: Imaging protocol: Real-time transabdominal and transvaginal pelvic ultrasound (complete) with image documentation. Transvaginal imaging was used for better evaluation of the endometrium and adnexa. Real-time duplex ultrasound scan of the arterial and venous flow of the ovaries with B-mode, color Doppler flow and spectral waveform analysis. COMPARISON: CT abdomen pelvis w con* [id number] 07/04/2019 9:46 PM FINDINGS: Uterus/cervix: The uterus measures 7.1 x 3.8 x 4.3 cm. The endometrial stripe is 4.3 mm. Multiple uterine fibroids are noted. There are nabothian cysts in the cervix. The largest uterine fibroid measures 2.0 x 1.7 x 2.0 cm in size within the anterior mid uterus. Right adnexa: The right ovary measures 1.5 x 0.8 x 1.2 cm. The right ovary is unremarkable in appearance. Doppler evaluation of the right ovary was performed and demonstrates good arterial and venous flow. Left adnexa: The left ovary measures 1.1 x 0.6 x 0.8 cm. The left ovary is unremarkable in appearance. Doppler evaluation left ovary was performed and demonstrates good arterial and venous flow. Free fluid: None. Bladder: Normal. US/US pelvic complete* [id number] IMPRESSION: 1. Unremarkable ovaries. Unremarkable ovarian Doppler. No torsion. 2. Multiple uterine fibroids. Otherwise unremarkable uterus. Nabothian cysts in the cervix are noted.
[2020-01-26 18:37] LABS: Basophils % 0.5 %; Eosinophils # 0.2 10^3/uL (0.0-0.8); Eosinophils % 2.9 %; Hemoglobin 13.8 g/dL (11.5-15.3); Lymphocytes # 2.2 10^3/uL (0.8-4.8); Lymphocytes % 28.5 %; Mean Corpuscular HGB Conc 32.1 g/dL (30.0-36.0); Mean Corpuscular Hemoglobin 29.2 pg (28.0-34.0); Mean Corpuscular Volume 91.1 fL (81-99); Monocytes # 0.5 10^3/uL (0.2-0.9); Monocytes % 6.7 %; Neutrophils # 4.68 10^3/uL (1.8-7.7); Neutrophils % 61.1 %; Nucleated Red Blood Cells % 0 %; Platelet Count 293 10^3/cmm (130-400); Red Blood Count 4.72 10^6/uL (4.1-5.3); Red Cell Distribution Width 12.7 % (12.1-15.1); White Blood Count 7.7 10^3/uL (4.0-10.0)
[2020-01-26] MEDS: sodium chloride 0.9% 1,000 ML 999 ML IV (18:38)
[2020-01-26] MEDS: ondansetron 2 mg/ML SDV 2 mL 4 MG IVP (18:38)
[2020-01-26] MEDS: HYDROmorphone 1 mg/mL INJ 1 mL 0.5 MG IVP (18:38)
[2020-01-26 18:48] LABS: HCG, Serum Qual Negative (Negative)
[2020-01-26 18:54] LABS: Alanine Aminotransferase 13 U/L (0-33); Albumin Level 4.5 g/dL (3.5-5.2); Alkaline Phosphatase 73 IU/L (35-105); Aspartate Amino Transferase 17 U/L (0-32); Blood Urea Nitrogen 16 mg/dL (6-20); Calcium 9.2 mg/dL (8.5-10.5); Carbon Dioxide 24 mmol/L (22-29); Chloride 108 mmol/L (98-107); Globulin 2.6 g/dL (1.3-4.6); Glomerular Filtration Rate 76.2 mL/min (90-130); Glucose 73 mg/dL (65-115); Lipase 36 U/L (13-60); Magnesium 2.1 mg/dL (1.7-2.3); Osmolality Calculated 287 mOsm/kg (285-295); Sodium 141 mmol/L (136-145); Total Bilirubin 0.2 mg/dL (0.15-1.2); Total Protein 7.1 g/dL (6.6-8.7)
[2020-01-26] MEDS: HYDROmorphone 1 mg/mL INJ 1 mL IVP ×3 (18:56→20:12)
[2020-01-26 19:09] LABS: Lactic Sepsis W/Reflex 0.7 mmol/L (0.5-2.2)
--- NOTE | 2020-01-26 19:11 | PC.NURSE ---
Report received from Lisa JOSHUA. Sumeet JOSHUA starting continuous fluids now.
[2020-01-26] MEDS: sodium chloride 0.9% 1,000 ML 100 ML IV (19:13)
--- NOTE | 2020-01-26 19:46 | W.ED.ABDPA2 ---
Documented by User: Tessie Curtis 01/26/20 21:15 HPI - Abdominal Pain General: Chief Complaint: Abdominal Pain Stated Complaint: ABDOMINAL PAIN Time Seen by Provider: 01/26/20 18:29 Source: patient Mode of arrival: ambulatory Limitations: no limitations History of Present Illness: HPI narrative: Jaelyn is a nice 49-year-old female who comes in complaining of sudden onset left lower quadrant abdominal pain. Patient states that feels like something exploded in my abdomen . Patient denies ever have anything like this before. She has associated nausea but no vomiting. She denies any changes in her bowel habits. She denies any urinary frequency, urgency or dysuria. Patient states the pain radiates around to her lower back but not upper flank. She does admit to history of ovarian cysts but they have never had to be intervened on or had surgery for. Patient denies any fevers, chills or any other associated symptoms. Associated Symptoms: Reports nausea; Denies chills, coffee ground emesis, constipation, GI cramping, diarrhea, dysuria, fever(s), heartburn, hematochezia, hematuria, hematemesis, melena, syncope and vomiting Review of Systems Const: Denies: fever(s), chills, body aches, fatigue, malaise or diaphoresis Eyes: Denies: change in vision, blurry vision, photophobia, eye discomfort, eye discharge or eye redness ENMT: Denies: throat pain, odynophagia, hoarseness, swelling of lips/tongue, ear or mastoid pain, ear discharge, change in hearing or nasal discharge Card: Denies: chest pain, palpitations, irregular heart rhythm, edema, lightheadedness, syncope, pre-syncope, dyspnea on exertion or orthopnea Resp: Denies: dyspnea, productive cough, non-productive cough, wheezing, hemoptysis or chest congestion GI: Reports: abdominal pain and nausea; Denies: vomiting, hematemesis, coffee ground emesis, heartburn, diarrhea, constipation, GI cramping, hematochezia or melena : Denies: flank pain, dysuria, urinary frequency, urinary urgency or hematuria Musc: Denies: neck pain, back pain, extremity pain, extremity swelling, joint pain, joint swelling, joint redness, joint warmth or joint stiffness Skin/Breast: Denies: rash, pruritus, erythema or skin tenderness Neuro: Denies: headache(s), numbness in extremities, weakness in extremities, sensory changes, lack of coordination, difficulty walking, dizziness, vertigo, confusion, Slurred speech present or seizure-like activity Michael/Lymph: Denies: easy bruising, easy bleeding, petechiae, purpura or enlarged lymph nodes All/Imm: Denies: urticaria, throat swelling, tongue swelling, facial swelling or acute wheezing PFSH ED PFSH: Medical History Anxiety Depression Low back pain Social History Smoking and tobacco status: current every day smoker Current gender identity: Female Physical Exam Const: COMMON NORMALS: no acute distress, patient oriented x3, no limitations, healthy appearing and well nourished GENERAL APPEARANCE: cooperative, well kempt and well developed HENMT: COMMON NORMALS: normocephalic, atraumatic, external ears normal, EAC's normal and Normal external nose present HEAD & SCALP: normal to inspection, normocephalic and atraumatic FACE & SINUS: normal facial exam and face symmetric NOSE: Normal external nose present and Normal nares present EXTERNAL EAR: Yes external ears normal EXTERNAL AUDITORY CANAL: EAC's normal MOUTH: Normal oral and palatal mucosa present, lip normal and tongue normal Eye: COMMON NORMALS: Equal, round and reactive pupils present and conjunctivae normal GENERAL EYE: appearance normal, both eyes and all related structures ALIGNMENT: Yes alignment normal PERIORBITAL: periorbital findings normal EYELID: eyelids normal CONJUNCTIVA: Yes conjunctivae normal SCLERA: sclerae normal PUPIL: Yes Equal, round and reactive pupils present Neck/C-Spine: COMMON NORMALS: full ROM, no lymphadenopathy, supple, no meningeal signs and no JVD GENERAL: Yes normal visual inspection and Yes trachea midline Chest: COMMONS NORMALS: normal inspection of the chest and normal palpation of entire chest wall Resp: COMMON NORMALS: normal respiratory effort, No retractions, No use of accessory muscles and clear to auscultation bilaterally EFFORT & INSPECTION: Yes able to speak in complete sentences and Yes symmetric chest movement AUSCULTATION: clear to auscultation bilaterally, no crackles, no rales, no rhonchi and no wheezes Cardio: COMMON NORMALS: no JVD, regular rate, regular rhythm, S1 normal heart sound present and S2 normal heart sound present RATE: regular rate RHYTHM: regular rhythm HEART SOUNDS: S1 normal heart sound present, S2 normal heart sound present, no click, no gallops, no murmurs, no rubs and abnormal split S2 GI: COMMON NORMALS: Soft to palpation and No hepatosplenomegaly present PALPATION: Yes Soft to palpation, Yes Tenderness to palpation present (GI) (Severe) Details: LLQ and LUQ, No Guarding due to palpation present (GI), No Rigid due to palpation, Yes No hepatosplenomegaly present, No Hernia present, No Palpable mass present and No Pulsatile mass present : COMMON NORMALS: Yes no CVA tenderness BLADDER/KIDNEY EXAM: Yes no CVA tenderness EXTERNAL FEMALE EXAM: No Hernia present Back/Pelvis: COMMON NORMALS: no CVA tenderness, thoracic and lumbar spine normal to inspection, no thoracic nor lumbar tenderness and thoraco-lumbar ROM normal Extremity: COMMON NORMALS: normal to inspection, full ROM, capillary refill normal, no joint enlargement, no clubbing, cyanosis or edema and no calf tenderness Neuro: COMMON NORMALS: patient oriented x3, CN's II-XII intact bilaterally, moves all extremities, no focal motor deficits and no sensory deficits noted MENINGEAL SIGNS: Yes no meningeal signs SPEECH: speech normal Psych: COMMON NORMALS: mental status grossly normal, Normal thought process present, cooperative, normal affect, speech normal and activity/motor behavior normal APPEARANCE: Yes well kempt SPEECH: Yes normal speech THOUGHT PROCESS: Normal thought process present Skin: COMMON NORMALS: no rashes or lesions noted, turgor normal, no jaundice, no petechiae and no mottling GENERAL SKIN EXAM: no rashes or lesions noted and turgor normal Course Vital Signs: Vital signs: Vital Signs Temperature 97.8 F 01/26/20 18:26 Pulse Rate 88 01/26/20 21:14 Respiratory Rate 16 01/26/20 21:14 Blood Pressure 128/85 01/26/20 22:56 Pulse Oximetry 98 01/26/20 21:14 MDM - Abdominal Pain Lab Data: Attestation: I reviewed the patient's lab results. Labs: Lab Results 01/26/20 01/26/20 01/26/20 Range/Units 18:30 18:30 18:30 WBC 7.7 (4.0-10.0) 10^3/ uL RBC 4.72 (4.1-5.3) 10^6/u L Hgb 13.8 (11.5-15.3) g/dL Hct 43.0 (37.0-47.0) % MCV 91.1 (81-99) fL MCH 29.2 (28.0-34.0) pg MCHC 32.1 (30.0-36.0) g/dL RDW 12.7 (12.1-15.1) % Plt Count 293 (130-400) 10^3/c mm MPV 10.0 (7.4-10.4) fL Neut % (Auto) 61.1 % Lymph % (Auto) 28.5 % Ross % (Auto) 6.7 % Eos % (Auto) 2.9 % Baso % (Auto) 0.5 % Neut # (Auto) 4.68 (1.8-7.7) 10^3/u L Lymph # (Auto) 2.2 (0.8-4.8) 10^3/u L Ross # (Auto) 0.5 (0.2-0.9) 10^3/u L Eos # (Auto) 0.2 (0.0-0.8) 10^3/u L Baso # (Auto) 0.0 (0.0-0.1) 10^3/u L Nucleated RBC % (a uto) 0 % Nucleated RBCs # 0.0 /100WBC Sodium 141 (136-145) mmol/L Potassium 4.0 (3.5-5.1) mmol/L Chloride 108 H (98-107) mmol/L Carbon Dioxide 24 (22-29) mmol/L Anion Gap 13.0 (5-19) BUN 16 (6-20) mg/dL Creatinine 0.8 (0.5-0.9) mg/dL GFR Calculation 76.2 L (90-130) mL/min Glucose 73 (65-115) mg/dL Calculated Osmolal ity 287 (285-295) mOsm/k g Lactic Acid (0.5-2.2) mmol/L Calcium 9.2 (8.5-10.5) mg/dL Magnesium 2.1 (1.7-2.3) mg/dL Total Bilirubin 0.2 (0.15-1.2) mg/dL AST 17 (0-32) U/L ALT 13 (0-33) U/L Alkaline Phosphata se 73 (35-105) IU/L Total Protein 7.1 (6.6-8.7) g/dL Albumin 4.5 (3.5-5.2) g/dL Globulin 2.6 (1.3-4.6) g/dL Lipase 36 (13-60) U/L HCG, Qual Negative (Negative) Urine Color (Yellow) Urine Appearance (CLEAR) Urine pH (5-7) Ur Specific Gravit y (1.005-1.030) Urine Protein (Negative) Urine Glucose (UA) (Normal) Urine Ketones (Negative) Urine Blood (Negative) Urine Nitrate (Negative) Urine Bilirubin (NEGATIVE) Urine Urobilinogen (Negative) mg/dL Ur Leukocyte Elizabeth ase (Negative) Urine RBC (0-2) /hpf Urine WBC (0-5) /hpf Ur Squamous Epith Cells (0-5) Amorphous Sediment Urine Bacteria (NONE) Urine Mucus 01/26/20 01/26/20 Range/Units 18:38 21:09 WBC (4.0-10.0) 10^3/ uL RBC (4.1-5.3) 10^6/u L Hgb (11.5-15.3) g/dL Hct (37.0-47.0) % MCV (81-99) fL MCH (28.0-34.0) pg MCHC (30.0-36.0) g/dL RDW (12.1-15.1) % Plt Count (130-400) 10^3/c mm MPV (7.4-10.4) fL Neut % (Auto) % Lymph % (Auto) % Ross % (Auto) % Eos % (Auto) % Baso % (Auto) % Neut # (Auto) (1.8-7.7) 10^3/u L Lymph # (Auto) (0.8-4.8) 10^3/u L Ross # (Auto) (0.2-0.9) 10^3/u L Eos # (Auto) (0.0-0.8) 10^3/u L Baso # (Auto) (0.0-0.1) 10^3/u L Nucleated RBC % (a uto) % Nucleated RBCs # /100WBC Sodium (136-145) mmol/L Potassium (3.5-5.1) mmol/L Chloride (98-107) mmol/L Carbon Dioxide (22-29) mmol/L Anion Gap (5-19) BUN (6-20) mg/dL Creatinine (0.5-0.9) mg/dL GFR Calculation (90-130) mL/min Glucose (65-115) mg/dL Calculated Osmolal ity (285-295) mOsm/k g Lactic Acid 0.7 (0.5-2.2) mmol/L Calcium (8.5-10.5) mg/dL Magnesium (1.7-2.3) mg/dL Total Bilirubin (0.15-1.2) mg/dL AST (0-32) U/L ALT (0-33) U/L Alkaline Phosphata se (35-105) IU/L Total Protein (6.6-8.7) g/dL Albumin (3.5-5.2) g/dL Globulin (1.3-4.6) g/dL Lipase (13-60) U/L HCG, Qual (Negative) Urine Color Yellow (Yellow) Urine Appearance Clear (CLEAR) Urine pH 5 (5-7) Ur Specific Gravit y 1.025 (1.005-1.030) Urine Protein Neg (Negative) Urine Glucose (UA) Norm (Normal) Urine Ketones Negative (Negative) Urine Blood 3+ H (Negative) Urine Nitrate Negative (Negative) Urine Bilirubin Neg (NEGATIVE) Urine Urobilinogen Norm (Negative) mg/dL Ur Leukocyte Elizabeth ase Negative (Negative) Urine RBC 5-10 H (0-2) /hpf Urine WBC 5-10 H (0-5) /hpf Ur Squamous Epith Cells 10-15 H (0-5) Amorphous Sediment Not Reportable Urine Bacteria 1+ H (NONE) Urine Mucus 1+ Imaging Data ^: US Renal: My impression: Technologist interpretation -small left hydro-. Otherwise unremarkable. Please see formal report. US Pelvis : My impression: 2100 - Tech interpretation -evidence of blood flow present in both ovaries. No free fluid. No described ovarian cyst. Images will be sent to [facility] for formal report. Discharge Plan Discharge Patient Disposition: Home Clinical Impression: Calculus of distal left ureter Condition: Stable Prescriptions: New hydrocodone-acetaminophen 5-325 mg tablet 1 tab PO Q4H PRN (Reason: pain) Qty: 20 RF: 0 Zofran 4 mg tablet 4 mg PO Q6H PRN (Reason: nausea and vomiting) Qty: 14 RF: 0 Flomax 0.4 mg capsule 0.4 mg PO DAILY Qty: 10 RF: 0 No Action gabapentin 800 mg tablet 800 mg PO TID RF: 0 escitalopram oxalate [Lexapro] 20 mg tablet 20 mg PO DAILY RF: 0 tizanidine 4 mg capsule 4 mg PO TID PRN (Reason: Muscle Pain) RF: 0 topiramate [Topamax] 200 mg tablet 200 mg PO BID RF: 0 aripiprazole [Abilify] 2 mg tablet 2 mg PO DAILY RF: 0 trazodone 50 mg tablet 50 mg PO BEDTIME RF: 0 clonazepam 0.5 mg tablet 0.25 mg PO BID PRN (Reason: unknown) RF: 0 ketorolac 10 mg tablet 10 mg PO DAILY PRN (Reason: Pain) RF: 0 Discharge Orders: Discharge Order (Routine); Ordered 01/26/20 Ordered By: Deja Aviles Referrals: Isaak Mancini MD [Physician] - Mary Jane Smart APN [Primary Care Provider] - Patient Instructions: Kidney Stones (ED), How to Strain Your Urine (ED), Hydronephrosis (ED) Activity Restrictions/Additional Instructions: As discussed begin straining your urine. If you pass the stone please bring this with you to your urology appointment. Case management should contact you hopefully tomorrow to set you up with this appointment. You may take your pain and nausea medications as needed. Return to the emergency department for worsening or uncontrollable pain, repetitive episodes of vomiting, fevers, or any other concerns you may have. I hope you begin to feel better soon. Discharge Date/Time: 01/26/20 22:57 Coding Level of Care Code ED Premium Note Interest Calculator Clerk for Richardg Fwd Exam Comprehensive Documented by User: BERTA Bauer 01/26/20 23:24 HPI - Abdominal Pain General: Chief Complaint: Abdominal Pain Stated Complaint: ABDOMINAL PAIN Time Seen by Provider: 01/26/20 18:29 [facility] ED PFSH: Medical History Anxiety Depression Low back pain Social History Smoking and tobacco status: current every day smoker Current gender identity: Female Course Vital Signs: Vital signs: Vital Signs Temperature 97.8 F 01/26/20 18:26 Pulse Rate 88 01/26/20 21:14 Respiratory Rate 16 01/26/20 21:14 Blood Pressure 128/85 01/26/20 22:56 Pulse Oximetry 98 01/26/20 21:14 MDM - Abdominal Pain MDM Narrative: Medical decision making narrative: I assumed care of patient from Dr. Curtis as he was occupied with a critically ill patient. I agree with his HPI/physical examination. Patient initially had ultrasounds of her pelvis and renal performed. Patient then underwent CT imaging revealing a 3.5 mm left distal ureter stone. This fits clinically with patient's symptoms. She is currently pain-free during my examination. Patient's vital signs are stable. She has no evidence for infection at this time. Patient will be sent home with pain and nausea medications as well as flomax. Information placed with case management to get her set up with urology. She was given a urinary strainer. Pt with allergies reported to opioids-she states mainly just morphine and is able to take hydrocodone. Lab Data: Labs: Lab Results 01/26/20 01/26/20 01/26/20 Range/Units 18:30 18:30 18:30 WBC 7.7 (4.0-10.0) 10^3/ uL RBC 4.72 (4.1-5.3) 10^6/u L Hgb 13.8 (11.5-15.3) g/dL Hct 43.0 (37.0-47.0) % MCV 91.1 (81-99) fL MCH 29.2 (28.0-34.0) pg MCHC 32.1 (30.0-36.0) g/dL RDW 12.7 (12.1-15.1) % Plt Count 293 (130-400) 10^3/c mm MPV 10.0 (7.4-10.4) fL Neut % (Auto) 61.1 % Lymph % (Auto) 28.5 % Ross % (Auto) 6.7 % Eos % (Auto) 2.9 % Baso % (Auto) 0.5 % Neut # (Auto) 4.68 (1.8-7.7) 10^3/u L Lymph # (Auto) 2.2 (0.8-4.8) 10^3/u L Ross # (Auto) 0.5 (0.2-0.9) 10^3/u L Eos # (Auto) 0.2 (0.0-0.8) 10^3/u L Baso # (Auto) 0.0 (0.0-0.1) 10^3/u L Nucleated RBC % (a uto) 0 % Nucleated RBCs # 0.0 /100WBC Sodium 141 (136-145) mmol/L Potassium 4.0 (3.5-5.1) mmol/L Chloride 108 H (98-107) mmol/L Carbon Dioxide 24 (22-29) mmol/L Anion Gap 13.0 (5-19) BUN 16 (6-20) mg/dL Creatinine 0.8 (0.5-0.9) mg/dL GFR Calculation 76.2 L (90-130) mL/min Glucose 73 (65-115) mg/dL Calculated Osmolal ity 287 (285-295) mOsm/k g Lactic Acid (0.5-2.2) mmol/L Calcium 9.2 (8.5-10.5) mg/dL Magnesium 2.1 (1.7-2.3) mg/dL Total Bilirubin 0.2 (0.15-1.2) mg/dL AST 17 (0-32) U/L ALT 13 (0-33) U/L Alkaline Phosphata se 73 (35-105) IU/L Total Protein 7.1 (6.6-8.7) g/dL Albumin 4.5 (3.5-5.2) g/dL Globulin 2.6 (1.3-4.6) g/dL Lipase 36 (13-60) U/L HCG, Qual Negative (Negative) Urine Color (Yellow) Urine Appearance (CLEAR) Urine pH (5-7) Ur Specific Gravit y (1.005-1.030) Urine Protein (Negative) Urine Glucose (UA) (Normal) Urine Ketones (Negative) Urine Blood (Negative) Urine Nitrate (Negative) Urine Bilirubin (NEGATIVE) Urine Urobilinogen (Negative) mg/dL Ur Leukocyte Elizabeth ase (Negative) Urine RBC (0-2) /hpf Urine WBC (0-5) /hpf Ur Squamous Epith Cells (0-5) Amorphous Sediment Urine Bacteria (NONE) Urine Mucus 01/26/20 01/26/20 Range/Units 18:38 21:09 WBC (4.0-10.0) 10^3/ uL RBC (4.1-5.3) 10^6/u L Hgb (11.5-15.3) g/dL Hct (37.0-47.0) % MCV (81-99) fL MCH (28.0-34.0) pg MCHC (30.0-36.0) g/dL RDW (12.1-15.1) % Plt Count (130-400) 10^3/c mm MPV (7.4-10.4) fL Neut % (Auto) % Lymph % (Auto) % Ross % (Auto) % Eos % (Auto) % Baso % (Auto) % Neut # (Auto) (1.8-7.7) 10^3/u L Lymph # (Auto) (0.8-4.8) 10^3/u L Ross # (Auto) (0.2-0.9) 10^3/u L Eos # (Auto) (0.0-0.8) 10^3/u L Baso # (Auto) (0.0-0.1) 10^3/u L Nucleated RBC % (a uto) % Nucleated RBCs # /100WBC Sodium (136-145) mmol/L Potassium (3.5-5.1) mmol/L Chloride (98-107) mmol/L Carbon Dioxide (22-29) mmol/L Anion Gap (5-19) BUN (6-20) mg/dL Creatinine (0.5-0.9) mg/dL GFR Calculation (90-130) mL/min Glucose (65-115) mg/dL Calculated Osmolal ity (285-295) mOsm/k g Lactic Acid 0.7 (0.5-2.2) mmol/L Calcium (8.5-10.5) mg/dL Magnesium (1.7-2.3) mg/dL Total Bilirubin (0.15-1.2) mg/dL AST (0-32) U/L ALT (0-33) U/L Alkaline Phosphata se (35-105) IU/L Total Protein (6.6-8.7) g/dL Albumin (3.5-5.2) g/dL Globulin (1.3-4.6) g/dL Lipase (13-60) U/L HCG, Qual (Negative) Urine Color Yellow (Yellow) Urine Appearance Clear (CLEAR) Urine pH 5 (5-7) Ur Specific Gravit y 1.025 (1.005-1.030) Urine Protein Neg (Negative) Urine Glucose (UA) Norm (Normal) Urine Ketones Negative (Negative) Urine Blood 3+ H (Negative) Urine Nitrate Negative (Negative) Urine Bilirubin Neg (NEGATIVE) Urine Urobilinogen Norm (Negative) mg/dL Ur Leukocyte Elizabeth ase Negative (Negative) Urine RBC 5-10 H (0-2) /hpf Urine WBC 5-10 H (0-5) /hpf Ur Squamous Epith Cells 10-15 H (0-5) Amorphous Sediment Not Reportable Urine Bacteria 1+ H (NONE) Urine Mucus 1+ Imaging Data ^: CT Abd/Pel: Radiologist's impression: [place] [address] CT Scan Report Signed Patient: Jaelyn Finley Unit #: [id number] : 1970 Age/Sex: 49 / F ADM Date: 01/26/20 Loc: ER Room/Bed: Attending Dr: Ordering Provider/Ordering MD: Tessie Curtis DO Date of Service: 01/26/20 Procedure(s): CT abdomen pelvis wo/w [id number] Accession Number(s): [id number] Report Number: [id number] PROCEDURE INFORMATION: Exam: CT Abdomen And Pelvis Without And With Contrast Exam date and time: 01/26/2020 9:16 PM Age: 49 years old Clinical indication: Nausea; Abdominal pain; Localized; Left; Prior surgery; Surgery type: Back; Additional info: Left lower quadrant pain TECHNIQUE: Imaging protocol: Computed tomography of the abdomen and pelvis without and with intravenous contrast. Radiation optimization: All CT scans at this facility use at least one of these dose optimization techniques: automated exposure control; mA and/or kV adjustment per patient size (includes targeted exams where dose is matched to clinical indication); or iterative reconstruction. Contrast material: OMNI 300; Contrast volume: 95 ml; Contrast route: INTRAVENOUS (IV); COMPARISON: CT abdomen pelvis w con* [id number] 07/04/2019 9:46 PM RADIATION DOSE METRICS: Total DLP (mGy-cm): 3810.59 FINDINGS: Lungs: there is mild bibasilar ground-glass opacity compatible with mild pneumonitis versus atelectasis. No lobar consolidation. Liver: Unremarkable.No mass. Gallbladder and bile ducts: Normal. No calcified stones. No ductal dilation. Pancreas: Normal. No ductal dilation. Spleen: Normal. No splenomegaly. Adrenals: Normal. No mass. Kidneys and ureters: There is mild left hydronephrosis and left hydroureter which can be followed to a 3.5 mm calculus at the left ureteral vesical junction. The right kidney is normal. There is no evidence of right hydronephrosis. There is no evidence of renal calcifications. There is inflammatory left perinephric stranding. There are multiple renal hypodensities that cannot be further characterized on the current examination. Stomach and bowel: Extensive diverticulosis is present in the distal colon. The wall of the distal colon is thickened but collapsed. This appearance may reflect lack of distention however mild colitis cannot be excluded. There is no evidence of intestinal perforation or obstruction. Appendix: A normal appendix is identified. Intraperitoneal space: Unremarkable. No free air. No significant fluid collection. Vasculature: Unremarkable.No abdominal aortic aneurysm. Lymph nodes: Unremarkable.No enlarged lymph nodes. Bladder: There is nonspecific bladder wall thickening. This may be related to incomplete distention. Reproductive: Unremarkable as visualized. Bones/joints: Unremarkable. No acute fracture. Soft tissues: Unremarkable. CT/CT abdomen pelvis wo/w [id number] IMPRESSION: 1. Mild left hydronephrosis with a 3.5 mm calculus left ureteral vesicle junction. 2. The wall of the distal colon is thickened but collapsed. This appearance may reflect lack of distention however mild colitis cannot be excluded. Radiation Dose CTDIVOL = (mGy): DLP = 3810.59 (mGy-cm) Dictated By: Kelsey Marinelli Signed By: Kelsey Marinelli Signed Date/Time: 01/26/202150 DD/ 48 US pelvis: Radiologist's impression: [address] [address] Ultrasound Report Signed Patient: Jaelyn Finley Unit #: [id number] : 1970 Age/Sex: 49 / F ADM Date: 01/26/20 Loc: ER Room/Bed: Attending Dr: Ordering Provider/Ordering MD: Tessie Curtis DO Date of Service: 01/26/20 Procedure(s): US pelvic complete* [id number] Accession Number(s): [id number] Report Number: [id number] PROCEDURE INFORMATION: Exam: US Pelvis Complete, Transabdominal and US Pelvis, Transvaginal and US Duplex Artery and Vein, Ovaries, Complete Exam date and time: 01/26/2020 9:06 PM Age: 49 years old Clinical indication: Pelvic pain TECHNIQUE: Imaging protocol: Real-time transabdominal and transvaginal pelvic ultrasound (complete) with image documentation. Transvaginal imaging was used for better evaluation of the endometrium and adnexa. Real-time duplex ultrasound scan of the arterial and venous flow of the ovaries with B-mode, color Doppler flow and spectral waveform analysis. COMPARISON: CT abdomen pelvis w con* [id number] 07/04/2019 9:46 PM FINDINGS: Uterus/cervix: The uterus measures 7.1 x 3.8 x 4.3 cm. The endometrial stripe is 4.3 mm. Multiple uterine fibroids are noted. There are nabothian cysts in the cervix. The largest uterine fibroid measures 2.0 x 1.7 x 2.0 cm in size within the anterior mid uterus. Right adnexa: The right ovary measures 1.5 x 0.8 x 1.2 cm. The right ovary is unremarkable in appearance. Doppler evaluation of the right ovary was performed and demonstrates good arterial and venous flow. Left adnexa: The left ovary measures 1.1 x 0.6 x 0.8 cm. The left ovary is unremarkable in appearance. Doppler evaluation left ovary was performed and demonstrates good arterial and venous flow. Free fluid: None. Bladder: Normal. US/US pelvic complete* [id number] IMPRESSION: 1. Unremarkable ovaries. Unremarkable ovarian Doppler. No torsion. 2. Multiple uterine fibroids. Otherwise unremarkable uterus. Nabothian cysts in the cervix are noted. Dictated By: Kelsey Marinelli Signed By: Kelsey Marinelli Signed Date/Time: 01/26/202125 DD/ 25 US renal: Radiologist's impression: [address] [address] Ultrasound Report Signed Patient: Jaelyn Finley Unit #: [id number] : 1970 Age/Sex: 49 / F ADM Date: 01/26/20 Loc: ER Room/Bed: Attending Dr: Ordering Provider/Ordering MD: Tessie Curtis DO Date of Service: 01/26/20 Procedure(s): US renal BI with bladder Accession Number(s): [id number] Report Number: [id number] PROCEDURE INFORMATION: Exam: US Retroperitoneal; Complete; Kidneys and Bladder Exam date and time: 01/26/2020 8:34 PM Age: 49 years old Clinical indication: Abdominal pain; Flank; Left lower quadrant (llq); Additional info: Left lower quadrant pain TECHNIQUE: Imaging protocol: Real-time ultrasound of the retroperitoneum with image documentation. Complete exam focused on the kidneys and bladder. COMPARISON: US gall bladder [id number] 07/04/2019 6:15 PM FINDINGS: Right kidney: The right kidney measures 10.3 cm in length. The right kidney is appropriate in echotexture. No stones or hydronephrosis. No right perinephric fluid. Left kidney: The left kidney measures 11.2 cm in length. There is mild left hydronephrosis. No left nephrolithiasis. No left renal mass. Aorta: The aorta is unremarkable measuring 1.7 cm. Inferior vena cava: The visualized inferior vena cava is unremarkable. Bladder: The urinary bladder is partially collapsed in the wall appears mildly thickened and trabeculated compatible with lack of distension. No bladder calculi. US/US renal BI with bladder IMPRESSION: Mild left hydronephrosis. Unremarkable right kidney. The bladder is partially collapsed but otherwise unremarkable. Dictated By: Kelsey Marinelli Signed By: Kelsey Marinelli Signed Date/Time: 01/26/202152 DD/ 50 Discharge Plan Discharge Patient Disposition: Home Clinical Impression: Calculus of distal left ureter Condition: Stable Prescriptions: New hydrocodone-acetaminophen 5-325 mg tablet 1 tab PO Q4H PRN (Reason: pain) Qty: 20 RF: 0 Zofran 4 mg tablet 4 mg PO Q6H PRN (Reason: nausea and vomiting) Qty: 14 RF: 0 Flomax 0.4 mg capsule 0.4 mg PO DAILY Qty: 10 RF: 0 No Action gabapentin 800 mg tablet 800 mg PO TID RF: 0 escitalopram oxalate [Lexapro] 20 mg tablet 20 mg PO DAILY RF: 0 tizanidine 4 mg capsule 4 mg PO TID PRN (Reason: Muscle Pain) RF: 0 topiramate [Topamax] 200 mg tablet 200 mg PO BID RF: 0 aripiprazole [Abilify] 2 mg tablet 2 mg PO DAILY RF: 0 trazodone 50 mg tablet 50 mg PO BEDTIME RF: 0 clonazepam 0.5 mg tablet 0.25 mg PO BID PRN (Reason: unknown) RF: 0 ketorolac 10 mg tablet 10 mg PO DAILY PRN (Reason: Pain) RF: 0 Discharge Orders: Discharge Order (Routine); Ordered 01/26/20 Ordered By: Deja Aviles Referrals: Isaak Mancini MD [Physician] - Mary Jane Smart APN [Primary Care Provider] - Patient Instructions: Kidney Stones (ED), How to Strain Your Urine (ED), Hydronephrosis (ED) Activity Restrictions/Additional Instructions: As discussed begin straining your urine. If you pass the stone please bring this with you to your urology appointment. Case management should contact you hopefully tomorrow to set you up with this appointment. You may take your pain and nausea medications as needed. Return to the emergency department for worsening or uncontrollable pain, repetitive episodes of vomiting, fevers, or any other concerns you may have. I hope you begin to feel better soon. Discharge Date/Time: 01/26/20 22:57 Coding Level of Care Code ED Premium Note Interest Calculator Clerk for Richardg Fwd Exam Comprehensive
--- NOTE | 2020-01-26 20:16 | PC.NURSE ---
Patient reports the pain flares up. It comes and goes. Either medicate me or I will rip out this fucking IV and be a bitch to you . Attempted to de-escalate the patient. Provided the patient green oral swabs for comfort. Updated the patient on the time frame of the Ultrasound. Patient verbalized an understanding.
--- NOTE | 2020-01-26 20:33 | PC.NURSE ---
Ultrasound at bedside.
--- NOTE | 2020-01-26 21:07 | CTR_ITS ---
PROCEDURE INFORMATION: Exam: CT Abdomen And Pelvis Without And With Contrast Exam date and time: 01/26/2020 9:16 PM Age: 49 years old Clinical indication: Nausea; Abdominal pain; Localized; Left; Prior surgery; Surgery type: Back; Additional info: Left lower quadrant pain TECHNIQUE: Imaging protocol: Computed tomography of the abdomen and pelvis without and with intravenous contrast. Radiation optimization: All CT scans at this facility use at least one of these dose optimization techniques: automated exposure control; mA and/or kV adjustment per patient size (includes targeted exams where dose is matched to clinical indication); or iterative reconstruction. Contrast material: OMNI 300; Contrast volume: 95 ml; Contrast route: INTRAVENOUS (IV); COMPARISON: CT abdomen pelvis w con* [id number] 07/04/2019 9:46 PM RADIATION DOSE METRICS: Total DLP (mGy-cm): 3810.59 FINDINGS: Lungs: there is mild bibasilar ground-glass opacity compatible with mild pneumonitis versus atelectasis. No lobar consolidation. Liver: Unremarkable.No mass. Gallbladder and bile ducts: Normal. No calcified stones. No ductal dilation. Pancreas: Normal. No ductal dilation. Spleen: Normal. No splenomegaly. Adrenals: Normal. No mass. Kidneys and ureters: There is mild left hydronephrosis and left hydroureter which can be followed to a 3.5 mm calculus at the left ureteral vesical junction. The right kidney is normal. There is no evidence of right hydronephrosis. There is no evidence of renal calcifications. There is inflammatory left perinephric stranding. There are multiple renal hypodensities that cannot be further characterized on the current examination. Stomach and bowel: Extensive diverticulosis is present in the distal colon. The wall of the distal colon is thickened but collapsed. This appearance may reflect lack of distention however mild colitis cannot be excluded. There is no evidence of intestinal perforation or obstruction. Appendix: A normal appendix is identified. Intraperitoneal space: Unremarkable. No free air. No significant fluid collection. Vasculature: Unremarkable.No abdominal aortic aneurysm. Lymph nodes: Unremarkable.No enlarged lymph nodes. Bladder: There is nonspecific bladder wall thickening. This may be related to incomplete distention. Reproductive: Unremarkable as visualized. Bones/joints: Unremarkable. No acute fracture. Soft tissues: Unremarkable. CT/CT abdomen pelvis wo/w [id number] IMPRESSION: 1. Mild left hydronephrosis with a 3.5 mm calculus left ureteral vesicle junction. 2. The wall of the distal colon is thickened but collapsed. This appearance may reflect lack of distention however mild colitis cannot be excluded. Radiation Dose CTDIVOL = (mGy): DLP = 3810.59 (mGy-cm)
[2020-01-26] MEDS: iohexol 300 mg/mL 100 mL Btl IV (21:31)
[2020-01-26 22:12] LABS: Bacteria Urine 1+; Bilirubin Urine Neg (NEGATIVE); Blood Urine 3+ (Negative); Glucose Urine UA Norm (Normal); Ketones Urine Negative (Negative); Leukocyte Esterase Urine Negative (Negative); Mucus Urine 1+; Nitrate Urine Negative (Negative); Protein Urine Neg (Negative); Specific Gravity, Urine 1.025 (1.005-1.030); Urine Appearance Clear (CLEAR); Urine Color Yellow (Yellow); Urobilinogen Urine Norm (Negative); pH Urine 5 (5-7)
[2020-01-26] MEDS: HYDROcodone-acetaminophen 7.5-325 mg Tablet 2 TAB PO (22:44)
[2020-01-26] MEDS: ondansetron 4 MG Tablet PO (22:45)
--- NOTE | 2020-01-27 09:21 | DCPLANNER ---
cytogenetics laboratory manager had message to schedule a follow up appointment for patient with Dr. Mancini. cytogenetics laboratory manager called the office of Dr. Mancini, spoke with Olivia, gave clinic patients information. cytogenetics laboratory manager was told that patients information would be printed and given to Maile for review. Clinic will call patient with appointment information.
--- NOTE | 2020-02-01 13:23 | DCPLANNER ---
Patient had a follow up appointment scheduled for 01.30.[address] Mancini - patient did attend appointment.
== END 2020-01-26 22:57 | disposition home or self-care (01) ==
PROVIDERS: Emergency Medicine; Emergency Provider Physician Assistant; PCP Nurse Practitioner Family
DX: N20.1 Calculus of ureter (principal); F17.210 Nicotine dependence, cigarettes, uncomplicated
CPT/HCPCS: 12345; 74178; 76770; 76856; 76857; 80053; 81001; 83605; 83690; 83735; 84703; 85025; 96360; 96361; 96365; 96374; 96375; 96376; 99283; 99284; J0131; J1170; J2405; J7030; Q0162; Q9967

== ENCOUNTER 2020-01-30 07:37 | Outpatient (CLI) | payer MEDICARE, SELFPAY ==
--- NOTE | 2020-01-30 08:00 | XR_ITS ---
WS: [id number] EXAM: ABDOMINAL KUB DATE OF EXAMINATION: 01/30/2020, 0748 hours COMPARISON: Abdominal KUB from 07/04/[address] of the abdomen and pelvis from 01/26/2020 HISTORY: Patient is 49 years old with lumbar spine surgery. Follow-up. FINDINGS: The bowel gas pattern is normal. Moderate amount of stool. Phleboliths in the deep pelvis. Calcificat ion on the left at the level of the acetabular tectum may represent the distal ureteral stone seen on recent CT from 01/26/2020. Otherwise no definite stone to suggest a ureteral stone identified. Change s of arthritis are seen in the spine. Most prominent lower lumbar spine. XR/XR KUB [id number] IMPRESSION: Normal bowel gas pattern. Calcifications in the deep pelvis. Majority are felt to represent 50 was. One calcification on the left at the level of the acetabul ar tectum may represent the previously noted left distal ureteral stone.
== END 2020-01-30 07:38 | disposition home or self-care (01) ==
PROVIDERS: PCP Nurse Practitioner Family; Visit Provider Urology
DX: N20.1 Calculus of ureter (principal)
CPT/HCPCS: 74018; 81001

== ENCOUNTER 2020-04-04 12:33 | Emergency (ER) | payer MEDICARE, SELFPAY ==
[2020-04-04 12:41] VITALS: BP 161/96; PULSE 87; RESP 18; TEMP 36.5; O2SAT 99
--- NOTE | 2020-04-04 12:46 | ECG_ITS ---
[facility] Test Date: 2020-04-04 Pat Name: Jaelyn Finley Department: Room: Gender: Female Principal Technical Specialist: : 1970 Requested By: Mary Jane Smart Order Number: [id number] Fernandez MD: Janett Og M.D. Measurements Intervals [place] Rate: 93 P: 11 VA: 171 QRS: -11 QRSD: 100 T: 12 QT: 352 QTc: 438 Interpretive Statements SINUS RHYTHM LOW QRS VOLTAGE IN PRECORDIAL LEADS [QRS DEFLECTION < 1.0 mV IN CHEST LEADS] Compared to ECG 08/30/2019 09:00:50 No significant changes Electronically Signed On 04-04-2020 12:51:37 CDT by Janett Og M.D. [id number]
--- NOTE | 2020-04-04 12:57 | ECG_ITS ---
[facility] Test Date: 2020-04-04 Pat Name: Jaelyn Finley Department: Room: Gender: Female Paint Spray Tender: : 1970 Requested By: Fer Fletcher Order Number: [id number] Jim MD: Kee Lantigua M.D. Measurements Intervals [place] Rate: 70 P: 9 [place]: 176 QRS: 11 QRSD: 109 T: 28 QT: 390 QTc: 422 Interpretive Statements SINUS RHYTHM LOW QRS VOLTAGE IN PRECORDIAL LEADS [QRS DEFLECTION < 1.0 mV IN CHEST LEADS] Compared to ECG 04/04/2020 12:44:42 No significant changes Electronically Signed On 04-04-2020 21:45:45 CDT by Kee Lantigua M.D. [id number] f
--- NOTE | 2020-04-04 12:57 | XRR_ITS ---
PROCEDURE INFORMATION: Exam: XR Chest, 1 View Exam date and time: 04/04/2020 12:59 PM Age: 49 years old Clinical indication: Chest pain; Type not specified TECHNIQUE: Imaging protocol: XR of the chest Views: 1 view. COMPARISON: CR Chest 1 [place] [id number] 03/29/2019 3:03 AM FINDINGS: Lungs: Unremarkable. No consolidation. Pleural space: Unremarkable. No pleural effusion. No pneumothorax. Heart/Mediastinum: Unremarkable. No cardiomegaly. Bones/joints: Unremarkable. XR/XR chest 1V portable [id number] IMPRESSION: No acute findings.
[2020-04-04 13:21] VITALS: BP 134/83; PULSE 88; RESP 12; O2SAT 97
[2020-04-04 13:36] LABS: Basophils % 0.9 %; Eosinophils # 0.2 10^3/uL (0.0-0.8); Eosinophils % 3.4 %; Hematocrit 43.4 % (37.0-47.0); Lymphocytes # 1.6 10^3/uL (0.8-4.8); Lymphocytes % 35.1 %; Mean Corpuscular HGB Conc 32.3 g/dL (30.0-36.0); Mean Corpuscular Hemoglobin 29.4 pg (28.0-34.0); Mean Corpuscular Volume 91.2 fL (81-99); Mean Platelet Volume 9.7 fL (7.4-10.4); Monocytes # 0.3 10^3/uL (0.2-0.9); Monocytes % 6.3 %; Neutrophils # 2.41 10^3/uL (1.8-7.7); Neutrophils % 53.9 %; Nucleated Red Blood Cells % 0 %; Platelet Count 284 10^3/cmm (130-400); Red Blood Count 4.76 10^6/uL (4.1-5.3); Red Cell Distribution Width 12.4 % (12.1-15.1); White Blood Count 4.5 10^3/uL (4.0-10.0)
[2020-04-04 13:51] LABS: Alanine Aminotransferase 21 U/L (0-33); Albumin Level 4.5 g/dL (3.5-5.2); Alkaline Phosphatase 81 IU/L (35-105); Anion Gap 16.2 (5-19); Aspartate Amino Transferase 19 U/L (0-32); Blood Urea Nitrogen 12 mg/dL (6-20); Calcium 9.5 mg/dL (8.5-10.5); Carbon Dioxide 22 mmol/L (22-29); Chloride 105 mmol/L (98-107); Globulin 2.7 g/dL (1.3-4.6); Glomerular Filtration Rate 88.9 mL/min (90-130); Glucose 95 mg/dL (65-115); Osmolality Calculated 288 mOsm/kg (285-295); Potassium 4.2 mmol/L (3.5-5.1); Sodium 139 mmol/L (136-145); Total Bilirubin 0.4 mg/dL (0.15-1.2); Total Protein 7.2 g/dL (6.6-8.7)
[2020-04-04 13:52] LABS: Troponin(5th) Baseline 7 ng/L (0-10)
--- NOTE | 2020-04-04 14:17 | W.ED.CHESTPA ---
HPI - Chest Pain General: Chief Complaint: Chest Pain Stated Complaint: Chest Pain Time Seen by Provider: 04/04/20 12:34 History of Present Illness: HPI narrative: 49-year-old female presents emergency room with complaints of chest pain said intermittent chest pain radiating to her left shoulder and left side of her neck for the last 1 to 2 days. She has had it at rest she has not noticed anything that exacerbates it or relieves it. She is not noticed it being worse with inspiration or palpation. She was recently diagnosed with Covid about 3 weeks ago she was never hospitalized her cough has been slowly improving. She is not having any significant chest pain now. She does have family history of early coronary disease MD complaint: chest pain Onset (ago): day(s) Timing of current episode: episodic Onset: during rest Pain location: left chest Pain radiation: neck and left shoulder Severity: moderate Quality: tightness and heaviness Relieving factors: nothing Exacerbating factors: nothing Context: recent illness (Diagnosed with Covid 3 weeks ago) Associated symptoms: Reports dyspnea; Deny abdominal pain, diaphoresis, fever(s), leg edema, nausea, palpitations, sense of impending doom, syncope or vomiting Treatment prior to arrival: none Review of Systems Const: Denies: fever(s) or diaphoresis ENMT: Denies: throat pain, ear or mastoid pain, nasal discharge or nasal congestion Card: Denies: palpitations or syncope Resp: Reports: dyspnea GI: Denies: abdominal pain, nausea or vomiting : Denies: flank pain, difficulty voiding, dysuria, urinary frequency or urinary urgency Skin/Breast: Denies: rash or pruritus PFSH ED PFSH: Medical History Anxiety Depression Low back pain Urgency incontinence Surgical History History of back surgery Hx of hand surgery Hx of oral surgery Family History Other CAD (coronary artery disease) Cancer Diabetes Social History Smoking and tobacco status: current every day smoker Alcohol intake: never Adopted: No Caregiver/support person: No Lives independently: Yes Marital status: Single Current occupational status: disabled History of recent travel: No Current gender identity: Female Physical Exam Const: COMMON NORMALS: no acute distress GENERAL APPEARANCE: cooperative and comfortable ORIENTATION/CONSCIOUSNESS: Yes awake, Yes oriented to person, Yes oriented to place and Yes oriented to time HENMT: COMMON NORMALS: normocephalic, atraumatic and hearing grossly normal bilaterally HEAD & SCALP: normocephalic and atraumatic Neck/C-Spine: COMMON NORMALS: no JVD Chest: CHEST: Yes localized rib tenderness with anteroposterior compression Resp: COMMON NORMALS: normal respiratory effort, No retractions, No use of accessory muscles and clear to auscultation bilaterally AUSCULTATION: clear to auscultation bilaterally Cardio: COMMON NORMALS: no JVD, regular rate, regular rhythm and No murmurs present (Cardio) RATE: regular rate RHYTHM: regular rhythm GI: COMMON NORMALS: Soft to palpation and No hepatosplenomegaly present AUSCULTATION: Yes normoactive bowel sounds PALPATION: Yes Soft to palpation, No Tenderness to palpation present (GI), No Guarding due to palpation present (GI) and Yes No hepatosplenomegaly present Extremity: COMMON NORMALS: normal to inspection, capillary refill normal, no clubbing, cyanosis or edema, no calf tenderness and no pedal edema Neuro: SENSORIUM/ORIENTATION: Yes oriented to person, Yes oriented to place and Yes oriented to time Skin: COMMON NORMALS: no rashes or lesions noted GENERAL SKIN EXAM: no rashes or lesions noted Course Vital Signs: Vital signs: Vital Signs Temperature 97.7 F 04/04/20 12:41 Pulse Rate 81 04/04/20 16:34 Respiratory Rate 14 04/04/20 16:34 Blood Pressure 123/92 04/04/20 16:34 Pulse Oximetry 99 04/04/20 16:34 MDM - Chest Pain MDM Narrative: Medical decision making narrative: Anterior tender chest wall. I may have her start on aspirin daily case management will call to get her set up for cardiac stress test at this point her troponin delta is negative. Avoiding strenuous activities return if has any recurrence of symptoms. Lab Data: Labs: Lab Results 04/04/20 04/04/20 04/04/20 Range/Units 13:20 13:20 13:20 WBC 4.5 (4.0-10.0) 10^3/ uL RBC 4.76 (4.1-5.3) 10^6/u L Hgb 14.0 (11.5-15.3) g/dL Hct 43.4 (37.0-47.0) % MCV 91.2 (81-99) fL MCH 29.4 (28.0-34.0) pg MCHC 32.3 (30.0-36.0) g/dL RDW 12.4 (12.1-15.1) % Plt Count 284 (130-400) 10^3/c mm MPV 9.7 (7.4-10.4) fL Neut % (Auto) 53.9 % Lymph % (Auto) 35.1 % [place] % (Auto) 6.3 % Eos % (Auto) 3.4 % Baso % (Auto) 0.9 % Neut # (Auto) 2.41 (1.8-7.7) 10^3/u L Lymph # (Auto) 1.6 (0.8-4.8) 10^3/u L [place] # (Auto) 0.3 (0.2-0.9) 10^3/u L Eos # (Auto) 0.2 (0.0-0.8) 10^3/u L Baso # (Auto) 0.0 (0.0-0.1) 10^3/u L Nucleated RBC % (a uto) 0 % Nucleated RBCs # 0.0 /100WBC Sodium 139 (136-145) mmol/L Potassium 4.2 (3.5-5.1) mmol/L Chloride 105 (98-107) mmol/L Carbon Dioxide 22 (22-29) mmol/L Anion Gap 16.2 (5-19) BUN 12 (6-20) mg/dL Creatinine 0.7 (0.5-0.9) mg/dL GFR Calculation 88.9 L (90-130) mL/min Glucose 95 (65-115) mg/dL Calculated Osmolal ity 288 (285-295) mOsm/k g Calcium 9.5 (8.5-10.5) mg/dL Total Bilirubin 0.4 (0.15-1.2) mg/dL AST 19 (0-32) U/L ALT 21 (0-33) U/L Alkaline Phosphata se 81 (35-105) IU/L Troponin T Baselin e 7 (0-10) ng/L Troponin T 120 Min [place] (0-10) ng/L Delta Troponin T (0-10) ABS# Total Protein 7.2 (6.6-8.7) g/dL Albumin 4.5 (3.5-5.2) g/dL Globulin 2.7 (1.3-4.6) g/dL 10//20 Range/Units 15:15 WBC (4.0-10.0) 10^3/ uL RBC (4.1-5.3) 10^6/u L Hgb (11.5-15.3) g/dL Hct (37.0-47.0) % MCV (81-99) fL MCH (28.0-34.0) pg MCHC (30.0-36.0) g/dL RDW (12.1-15.1) % Plt Count (130-400) 10^3/c mm MPV (7.4-10.4) fL Neut % (Auto) % Lymph % (Auto) % [place] % (Auto) % Eos % (Auto) % Baso % (Auto) % Neut # (Auto) (1.8-7.7) 10^3/u L Lymph # (Auto) (0.8-4.8) 10^3/u L [place] # (Auto) (0.2-0.9) 10^3/u L Eos # (Auto) (0.0-0.8) 10^3/u L Baso # (Auto) (0.0-0.1) 10^3/u L Nucleated RBC % (a uto) % Nucleated RBCs # /100WBC Sodium (136-145) mmol/L Potassium (3.5-5.1) mmol/L Chloride (98-107) mmol/L Carbon Dioxide (22-29) mmol/L Anion Gap (5-19) BUN (6-20) mg/dL Creatinine (0.5-0.9) mg/dL GFR Calculation (90-130) mL/min Glucose (65-115) mg/dL Calculated Osmolal ity (285-295) mOsm/k g Calcium (8.5-10.5) mg/dL Total Bilirubin (0.15-1.2) mg/dL AST (0-32) U/L ALT (0-33) U/L Alkaline Phosphata se (35-105) IU/L Troponin T Baselin e (0-10) ng/L Troponin T 120 Min [place] 6.00 (0-10) ng/L Delta Troponin T -1.00 L (0-10) ABS# Total Protein (6.6-8.7) g/dL Albumin (3.5-5.2) g/dL Globulin (1.3-4.6) g/dL Discharge Plan Discharge Patient Disposition: Home Clinical Impression: Atypical chest pain Condition: Stable Prescriptions: New aspirin 81 mg tablet,chewable 81 mg PO DAILY Qty: 30 RF: 0 No Action tizanidine 4 mg capsule 4 mg PO TID PRN (Reason: Muscle Pain) RF: 0 clonazepam 0.5 mg tablet 0.25 mg PO BID PRN (Reason: unknown) RF: 0 topiramate [Topamax] 200 mg tablet 200 mg PO BID PRNRF: 0 trazodone 50 mg tablet 50 mg PO BEDTIME PRNRF: 0 Flomax 0.4 mg capsule 0.4 mg PO DAILY Qty: 30 RF: 1 ketorolac 10 mg tablet 10 mg PO DAILY PRN (Reason: Pain) RF: 0 hydrocodone-acetaminophen 5-325 mg tablet 1 tab PO Q4H PRN (Reason: pain) Qty: 20 RF: 0 Zofran 4 mg tablet 4 mg PO Q6H PRN (Reason: nausea and vomiting) Qty: 14 RF: 0 Discharge Orders: Discharge Order (Routine); Ordered 04/04/20 Ordered By: Fer Ovalle Referrals: Mary Jane Smart APN [Primary Care Provider] - Discharge Diet: Usual diet Discharge Activity: Limit activity as instructed Activity Restrictions/Additional Instructions: Avoid any strenuous activity. Baby aspirin daily. Case management will call to set you up for a cardiac stress test. Discharge Date/Time: 04/04/20 16:35 Coding Level of Care Code ED Public Works Director for Richardg Fwd Exam Comprehensive
[2020-04-04 15:21] VITALS: BP 124/84; PULSE 86; RESP 16; O2SAT 98
[2020-04-04 16:03] VITALS: BP 129/89; PULSE 79; RESP 14; O2SAT 91
[2020-04-04] MEDS: ketorolac 30 mg/mL INJ IVP (16:04)
[2020-04-04 16:34] VITALS: BP 123/92; PULSE 81; RESP 14; O2SAT 99
== END 2020-04-04 16:35 | disposition home or self-care (01) ==
PROVIDERS: Emergency Provider Family Medicine; PCP Nurse Practitioner Family
DX: R07.89 Other chest pain (principal); F17.210 Nicotine dependence, cigarettes, uncomplicated
CPT/HCPCS: 12345; 36415; 71045; 80053; 84484; 85025; 93005; 96374; 96375; 99283; 99284; J1885

== ENCOUNTER 2023-01-29 13:24 | Emergency (ER) | payer MEDICARE, SELFPAY ==
[2023-01-29 13:25] VITALS: BP 153/85; PULSE 76; RESP 18; TEMP 36.4; O2SAT 100; BMI 33.0
[2023-01-29 13:52] LABS: Basophils % 0.5 %; Eosinophils # 0.3 10^3/uL (0.0-0.8); Eosinophils % 5.8 %; Hematocrit 41.9 % (37.0-47.0); Hemoglobin 13.7 g/dL (11.5-15.3); Lymphocytes # 1.1 10^3/uL (0.8-4.8); Lymphocytes % 19.8 %; Mean Corpuscular HGB Conc 32.7 g/dL (30.0-36.0); Mean Corpuscular Hemoglobin 29.7 pg (28.0-34.0); Mean Corpuscular Volume 90.7 fl (81-99); Mean Platelet Volume 9.8 fL (7.4-10.4); Monocytes # 0.3 10^3/uL (0.2-0.9); Monocytes % 4.6 %; Neutrophils # 3.88 10^3/uL (1.8-7.7); Neutrophils % 68.8 %; Nucleated Red Blood Cells % 0 %; Platelet Count 295 10^3/cmm (130-400); Red Blood Count 4.62 10^6/uL (4.1-5.3); Red Cell Distribution Width 12.7 % (12.1-15.1); White Blood Count 5.7 10^3/uL (4.0-10.0)
[2023-01-29 13:59] LABS: Alanine Aminotransferase 12 U/L (0-33); Albumin Level 4.2 g/dL (3.5-5.2); Alkaline Phosphatase 84 U/L (35-105); Aspartate Amino Transferase 16 U/L (0-32); Blood Urea Nitrogen 11 mg/dL (6-20); Calcium 9.2 mg/dL (8.5-10.5); Carbon Dioxide 25 mmol/L (22-29); Chloride 109 mmol/L (98-107); Globulin 2.4 g/dL (1.3-4.6); Glomerular Filtration Rate 87.9 mL/min (90-130); Glucose 87 mg/dL (65-115); Magnesium 2.1 mg/dL (1.7-2.3); Osmolality Calculated 297 mOsm/kg (285-295); Sodium 144 mmol/L (136-145); Total Bilirubin 0.2 mg/dL (0.15-1.2); Total Protein 6.6 g/dL (6.6-8.7)
[2023-01-29 14:00] VITALS: BP 131/81; PULSE 74; O2SAT 100
[2023-01-29 14:05] LABS: Anion Gap 14.2 (5-19); Potassium 4.2 mmol/L (3.5-5.1)
--- NOTE | 2023-01-29 14:25 | W.ED.SEIZURE ---
HPI - Seizure General: Chief Complaint: Seizure Stated Complaint: SEIZURE Time Seen by Provider: 01/29/23 13:28 History of Present Illness: HPI Narrative: Patient presents to the ER with plaints of feeling an aura like she is getting to have a seizure. Patient has not had a seizure in the last couple weeks. Patient is usually takes Klonopin for the seizures but has not had any. Patient was diagnosed decades ago with seizures and Klonopin and Topamax are the only medicine she is taking for them in the past. Review of Systems General: Reports: 10 or more systems reviewed and unremarkable except in HPI and below PFSH ED PFSH: Medical History (Updated 01/29/23 @ 16:10 by Brad Carroll DO) Anxiety Depression Low back pain Urgency incontinence Surgical History History of back surgery Hx of hand surgery Hx of oral surgery Family History Other CAD (coronary artery disease) Cancer Diabetes Social History Smoking and tobacco status: current every day smoker Alcohol intake: never Substance/Drug Use: current Adopted: No Caregiver/support person: No Lives independently: Yes Marital status: Single Current occupational status: disabled Current gender identity: Female Physical Exam Const: COMMON NORMALS: no acute distress, average body habitus, patient oriented x3, no limitations, healthy appearing, alert and well nourished HENMT: COMMON NORMALS: normocephalic, atraumatic, hearing grossly normal bilaterally, Normal external nose present and moist oral mucous membranes HEAD & SCALP: normocephalic and atraumatic NOSE: Normal external nose present Neck/C-Spine: COMMON NORMALS: full ROM, no lymphadenopathy, supple, no meningeal signs, no JVD and Thyroid normal THYROID: Thyroid normal Chest: COMMONS NORMALS: normal inspection of the chest and normal palpation of entire chest wall Resp: COMMON NORMALS: normal respiratory effort, No retractions, No use of accessory muscles and clear to auscultation bilaterally AUSCULTATION: clear to auscultation bilaterally Cardio: COMMON NORMALS: no JVD, regular rate, regular rhythm, S1 normal heart sound present, S2 normal heart sound present, No gallops present (Cardio), No clicks present (Cardio), No murmurs present (Cardio) and No rub (Cardio) RATE: regular rate RHYTHM: regular rhythm HEART SOUNDS: S1 normal heart sound present and S2 normal heart sound present GI: COMMON NORMALS: Normal to inspection, nondistended, normoactive bowel sounds present, Soft to palpation, non-tender, No hepatosplenomegaly present and no masses PALPATION: Yes Soft to palpation and Yes No hepatosplenomegaly present : COMMON NORMALS: Yes no CVA tenderness BLADDER/KIDNEY EXAM: Yes no CVA tenderness Back/Pelvis: COMMON NORMALS: no CVA tenderness Neuro: COMMON NORMALS: patient oriented x3 SENSORIUM/ORIENTATION: Yes alert MENINGEAL SIGNS: Yes no meningeal signs Course Vital Signs: Vital signs: Vital Signs Temperature 97.6 F 01/29/23 13:25 Pulse Rate 60 01/29/23 15:00 Respiratory Rate 18 01/29/23 13:25 Blood Pressure 127/92 01/29/23 15:00 Pulse Oximetry 98 01/29/23 15:00 Oxygen Delivery Me thod Room Air 01/29/23 15:00 MDM - Seizure MDM Narrative Medical decision making narrative: Presents to the ER with complaints of having an aura like to get her to have a seizure. Patient's been without her Klonopin for 2 weeks. Patient used to see Dr. Brown but due to personality differences she has not seen her in a long time. Patient sees Dr. Timmons and has a family practice doc. Lab work was obtained. It is anticipated that will be negative and patient be discharged home Differential Diagnosis Seizure Differential Diagnosis: Unlikely intractable seizure disorder, febrile convulsion, focal seizure, generalized seizure, new onset seizure, epileptic seizure or status epilepticus Lab Data 01/29/23 13:10 01/29/23 13:10 Labs: Laboratory Results WBC 5.7 10^3/uL (4.0-10.0) 01/29/23 13:10 RBC 4.62 10^6/uL (4.1-5.3) 01/29/23 13:10 Hgb 13.7 g/dL (11.5-15.3) 01/29/23 13:10 Hct 41.9 % (37.0-47.0) 01/29/23 13:10 MCV 90.7 fl (81-99) 01/29/23 13:10 MCH 29.7 pg (28.0-34.0) 01/29/23 13:10 MCHC 32.7 g/dL (30.0-36.0) 01/29/23 13:10 RDW 12.7 % (12.1-15.1) 01/29/23 13:10 Plt Count 295 10^3/cmm (130-400) 01/29/23 13:10 MPV 9.8 fL (7.4-10.4) 01/29/23 13:10 Neut % (Auto) 68.8 % 01/29/23 13:10 Lymph % (Auto) 19.8 % 01/29/23 13:10 [place] % (Auto) 4.6 % 01/29/23 13:10 Eos % (Auto) 5.8 % 01/29/23 13:10 Baso % (Auto) 0.5 % 01/29/23 13:10 Neut # (Auto) 3.88 10^3/uL (1.8-7.7) 01/29/23 13:10 Lymph # (Auto) 1.1 10^3/uL (0.8-4.8) 01/29/23 13:10 [place] # (Auto) 0.3 10^3/uL (0.2-0.9) 01/29/23 13:10 Eos # (Auto) 0.3 10^3/uL (0.0-0.8) 01/29/23 13:10 Baso # (Auto) 0.0 10^3/uL (0.0-0.1) 01/29/23 13:10 Nucleated RBC % (auto) 0 % 01/29/23 13:10 Nucleated RBCs # 0.0 /100WBC 01/29/23 13:10 Sodium 144 mmol/L (136-145) 01/29/23 13:10 Potassium 4.2 mmol/L (3.5-5.1) 01/29/23 13:10 Chloride 109 mmol/L (98-107) H 01/29/23 13:10 Carbon Dioxide 25 mmol/L (22-29) 01/29/23 13:10 Anion Gap 14.2 (5-19) 01/29/23 13:10 BUN 11 mg/dL (6-20) 01/29/23 13:10 Creatinine 0.7 mg/dL (0.5-0.9) 01/29/23 13:10 GFR Calculation 87.9 mL/min (90-130) L 01/29/23 13:10 Glucose 87 mg/dL (65-115) 01/29/23 13:10 Calculated Osmolality 297 mOsm/kg (285-295) H 01/29/23 13:10 Calcium 9.2 mg/dL (8.5-10.5) 01/29/23 13:10 Magnesium 2.1 mg/dL (1.7-2.3) 01/29/23 13:10 Total Bilirubin 0.2 mg/dL (0.15-1.2) 01/29/23 13:10 AST 16 U/L (0-32) 01/29/23 13:10 ALT 12 U/L (0-33) 01/29/23 13:10 Alkaline Phosphatase 84 U/L (35-105) 01/29/23 13:10 Total Protein 6.6 g/dL (6.6-8.7) 01/29/23 13:10 Albumin 4.2 g/dL (3.5-5.2) 01/29/23 13:10 Globulin 2.4 g/dL (1.3-4.6) 01/29/23 13:10 Prolactin 7.46 ng/mL (4.8-23.3) 01/29/23 13:10 Urine Color Yellow (Yellow) 01/29/23 15:30 Urine Appearance Cloudy (CLEAR) A 01/29/23 15:30 Urine pH 6 (5-7) 01/29/23 15:30 Ur Specific [place] 1.015 (1.005-1.030) 01/29/23 15:30 Urine Protein Neg (Negative) 01/29/23 15:30 Urine Glucose (UA) Norm (Normal) 01/29/23 15:30 Urine Ketones Negative (Negative) 01/29/23 15:30 Urine Blood 3+ (Negative) H 01/29/23 15:30 Urine Nitrate Positive (Negative) H 01/29/23 15:30 Urine Bilirubin Neg (Negative) 01/29/23 15:30 Urine Urobilinogen Norm mg/dL (Negative) 08/17/23 15:30 Ur Leukocyte Esterase 2+ (Negative) H 01/29/23 15:30 Urine RBC 5-10 /hpf (0-2) H 01/29/23 15:30 Urine WBC 15-25 /hpf (0-5) H 01/29/23 15:30 Ur Squamous Epith Cells 0-4 /hpf (0-5) H 01/29/23 15:30 Amorphous Sediment Not Reportable 01/29/23 15:30 Urine Bacteria 4+ /hpf (NONE) H 01/29/23 15:30 Urine Opiates Screen Negative ng/mL (Negative) 01/29/23 15:30 Ur Barbiturates Screen Negative ng/mL (Negative) 01/29/23 15:30 Ur Phencyclidine Scrn Negative ng/mL (Negative) 01/29/23 15:30 Ur Amphetamines Screen Positive ng/mL (Negative) H 01/29/23 15:30 U Benzodiazepines Scrn Negative ng/mL (Negative) 01/29/23 15:30 Urine Cocaine Screen Negative ng/mL (Negative) 01/29/23 15:30 U Marijuana (THC) Screen Positive ng/mL (Negative) H 01/29/23 15:30 Discharge Plan Discharge Patient Disposition: Home Clinical Impression: Urinary tract infection Qualifiers: Urinary tract infection type: acute cystitis Hematuria presence: with hematuria Qualified Code(s): N30.01 - Acute cystitis with hematuria Condition: Stable Prescriptions: New nitrofurantoin monohyd/m-cryst [Macrobid] 100 mg capsule 100 mg PO BID 7 Days Qty: 14 0RF Rx Instructions: must administer with a meal/food No Action lisinopril-hydrochlorothiazide 10-12.5 mg tablet 1 tab PO DAILY PRN (Reason: Blood Pressure) lamotrigine 200 mg Tablet 200 mg PO DAILY tizanidine 4 mg tablet 4 mg PO Q8H PRN (Reason: Muscle Spasm) chlorzoxazone 500 mg tablet 500 mg PO TID PRN (Reason: Muscle Spasm) ondansetron 4 mg tablet,disintegrating See Rx Instructions .ROUTE .COMPLEX Rx Instructions: DIZZOLVE 1 TABLET ON TOP OF TONGUE EVERY 6 HOURS NEEDED FOR NAUSEA AND VOMITING. celecoxib 400 mg capsule 400 mg PO BID duloxetine 60 mg capsule,delayed release(DR/EC) 60 mg PO DAILY Discharge Orders: Discharge ED (Routine); Ordered 01/29/23 Ordered By: Brad Carroll Referrals: Mary Jane Smart APN [Primary Care Provider] - 1 week Patient Instructions: Urinary Tract Infection in Women (DC) Activity Restrictions/Additional Instructions: Please take all your antibiotics please follow-up with your family practice physician. Coding Level of Care Code ED Newspaper Correspondent for Gallo Castellanos
[2023-01-29 14:30] VITALS: BP 122/87; PULSE 68; O2SAT 98
[2023-01-29 14:30] LABS: Prolactin 7.46 ng/mL (4.8-23.3)
[2023-01-29 15:00] VITALS: BP 127/92; PULSE 60; O2SAT 98
[2023-01-29 15:49] LABS: Urine Appearance Cloudy (CLEAR); Urine Color Yellow (Yellow)
[2023-01-29 15:50] LABS: Add Urine Culture? Yes; Add Urine Microscopic? YES; Bacteria Urine 4+ /hpf; Bilirubin Urine Neg (Negative); Blood Urine 3+ (Negative); Glucose Urine UA Norm (Normal); Ketones Urine Negative (Negative); Leukocyte Esterase Urine 2+ (Negative); Nitrate Urine Positive (Negative); Protein Urine Neg (Negative); Specific Gravity, Urine 1.015 (1.005-1.030); Squamous Epithelial Cell Urine 0-4 /hpf (0-5); Urobilinogen Urine Norm (Negative); WBC Urine 15-25 /hpf (0-5); pH Urine 6 (5-7)
[2023-01-29 15:53] LABS: Amphetamines Screen Urine Positive (Negative); Barbiturates Screen Urine Negative (Negative); Benzodiazepines Screen Urine Negative (Negative); Cocaine Screen Urine Negative (Negative); Opiate Screen Urine Negative (Negative); PCP Screen Urine Negative (Negative); THC Screen Urine Positive (Negative)
[2023-01-29 16:22] VITALS: BP 127/64; PULSE 74; O2SAT 98
== END 2023-01-29 16:24 | disposition home or self-care (01) ==
PROVIDERS: Emergency Provider Emergency Medicine; PCP Nurse Practitioner Family
DX: N30.01 Acute cystitis with hematuria (principal); F17.210 Nicotine dependence, cigarettes, uncomplicated
CPT/HCPCS: 80053; 80306; 81001; 83735; 84146; 85025; 87077; 87086; 87186; 99283

== ENCOUNTER → 2023-10-18 16:34 | Outpatient (BNVA) | payer MEDICARE, SELFPAY | PROVIDERS: PCP Nurse Practitioner Family; Visit Provider Nurse Practitioner | DX: S59.901A Unspecified injury of right elbow, initial encounter (principal); X58.XXXA Exposure to other specified factors, initial encounter | CPT/HCPCS: 73070 ==

== ENCOUNTER → 2024-01-26 09:56 | Outpatient (BNVA) | payer MEDICARE, SELFPAY | PROVIDERS: PCP Nurse Practitioner Family; Visit Provider Nurse Practitioner Family | DX: M77.31 Calcaneal spur, right foot (principal) | CPT/HCPCS: 73630 ==

== ENCOUNTER 2024-03-10 00:59 | Emergency (ER) | payer MEDICARE, SELFPAY ==
[2024-03-10 01:04] VITALS: BP 135/110; PULSE 98; RESP 16; TEMP 36.7; O2SAT 97; BMI 33.3
--- NOTE | 2024-03-10 01:10 | ED_ITS ---
HPI - Back Pain/Injury General: Chief Complaint: Back Pain/Injury Stated Complaint: Post Op onTuesday,Back pain,Dressing needs changed Time Seen by Provider: 03/10/24 01:09 History of Present Illness: 53-year-old female who had back surgery at [place] with Dr. Soto recently presents emergency room with back pain and concern for her dressing. She says someone was supposed to contact her to have her dressing changed and they never did and so she has not had it changed yet. She would make sure it looks okay and get a change. No saddle numbness, no urinary retention or incontinence, no focal motor deficit, no sensory deficit. no recent fever. no cough. no shortness of breath. no chest pain. no abdominal pain. no nausea or vomiting. no dysuria. no altered mental status. no edema. She also says she is been taking oxycodone at home but currently the pain seems uncontrolled. She is requesting something additional for pain while she is here. Related Data Home Medications Medication Instructions Recorded Confirmed chlorzoxazone 500 mg tablet 500 mg PO TID PRN Muscle Spasm 01/29/23 10/18/23 lamotrigine 200 mg tablet 200 mg PO DAILY 01/29/23 10/18/23 tizanidine 4 mg tablet 4 mg PO Q8H PRN Muscle Spasm 01/29/23 10/18/23 diclofenac potassium 50 mg tablet 50 mg PO BID 01/26/24 01/26/24 lisdexamfetamine 40 mg capsule 40 mg PO DAILY 01/26/24 01/26/24 (Vyvanse) meloxicam 15 mg tablet 15 mg PO DAILY 01/26/24 01/26/24 methocarbamol 750 mg tablet 750 mg PO ONCE 01/26/24 01/26/24 Previous Rx's Medication Instructions Recorded fluticasone propionate 50 2 spray intranasal DAILY #16 grams 06/02/23 mcg/actuation nasal spray,suspension (Flonase Allergy Relief) sulfamethoxazole 800 1 tab PO BID 7 days #14 tabs 01/26/24 mg-trimethoprim 160 mg tablet (Bactrim DS) Allergies Allergy/AdvReac Type Severity Reaction Status Date / Time Opioids - Morphine Analogues Allergy RASH Verified 03/10/24 01:09 Review of Systems Narrative: Constitutional symptoms: Negative except as documented in HPI. Skin symptoms: Negative except as documented in HPI. Eye symptoms: Negative except as documented in HPI. ENMT symptoms: Negative except as documented in HPI. Respiratory symptoms: Negative except as documented in HPI. Cardiovascular symptoms: Negative except as documented in HPI. Gastrointestinal symptoms: Negative except as documented in HPI. Genitourinary symptoms: Negative except as documented in HPI. Musculoskeletal symptoms: Negative except as documented in HPI. Neurologic symptoms: Negative except as documented in HPI. Psychiatric symptoms: Negative except as documented in HPI. Endocrine symptoms: Negative except as documented in HPI. PFSH ED PFSH: Medical History (Updated 03/10/24 @ 01:11 by Sun Montana MD) Urgency incontinence Anxiety Depression Low back pain Surgical History Hx of oral surgery Hx of hand surgery History of back surgery Family History Other CAD (coronary artery disease) Cancer Diabetes Social History Smoking and tobacco/nicotine status: unknown if used tobacco/nicotine Alcohol intake: never Substance/Drug Use: current Adopted: No Caregiver/support person: No Lives independently: Yes Marital status: Single Current occupational status: disabled Current gender identity: Female Physical Exam Narrative: EXAM NARRATIVE: General: Alert, no acute distress. Skin: warm and dry. Dressing appears clean. There is no bleeding. No signs of infection. Incision is clean dry and intact. Head: Normocephalic Neck: Trachea midline Eye: Extraocular movements are intact. Ears, nose, mouth and throat: Oral mucosa moist Respiratory: Respirations are non-labored Musculoskeletal: Normal ROM Neurological: Alert and oriented, No focal neurological deficit observed. Psychiatric: Cooperative, appropriate mood & affect. Course Vital Signs: Vital signs: Vital Signs Temperature 98.0 F 03/10/24 01:04 Pulse Rate 98 03/10/24 01:04 Respiratory Rate 16 03/10/24 01:04 Blood Pressure 135/110 03/10/24 01:04 Pulse Oximetry 97 03/10/24 01:04 Oxygen Delivery Me thod Room Air 03/10/24 01:04 MDM - Back Pain/Injury Medical Decision Making Assessment and plan: Postop back pain. ? IM Dilaudid, IM Toradol and IM Norflex - Discharged home - Discussed plan with patient. Answered any questions. - Evaluation and treatment of this problem were appropriate in the emergency setting. No radiology studies performed this visit Discharge Plan Discharge Patient Disposition: Home Clinical Impression: Post-operative pain Condition: Stable Prescriptions: No Action meloxicam 15 mg tablet 15 mg PO DAILY diclofenac potassium 50 mg tablet 50 mg PO BID methocarbamol 750 mg tablet 750 mg PO ONCE lisdexamfetamine [Vyvanse] 40 mg capsule 40 mg PO DAILY sulfamethoxazole-trimethoprim [Bactrim DS] 800-160 mg tablet 1 tab PO BID 7 Days Qty: 14 0RF fluticasone propionate [Flonase Allergy Relief] 50 mcg/actuation spray,suspension 2 spray intranasal DAILY Qty: 16 0RF Rx Instructions: administer into each nostril lamotrigine 200 mg Tablet 200 mg PO DAILY tizanidine 4 mg tablet 4 mg PO Q8H PRN (Reason: Muscle Spasm) chlorzoxazone 500 mg tablet 500 mg PO TID PRN (Reason: Muscle Spasm) Discharge Orders: Discharge ED (Routine); Ordered 03/10/24 Ordered By: Sun Montana Referrals: Juan M Elder MD [Primary Care Provider] - Discharge Diet: Usual diet Discharge Activity: Increase activity as tolerated Patient Instructions: Opioid Safety, Pain Management Activity Restrictions/Additional Instructions: Please call Dr. Soto's office for follow-up instructions. Thank you for choosing [facility] for your healthcare needs today. Please realize this is an emergency room and that we are providing you with a medical screening exam and this may not be complete and all inclusive of all the testing and or work up that you may need to determine your ailment or severity of your illness. You have been screened and evaluated and felt safe for discharge. Health conditions do change or evolve sometimes and as such it is important that you follow up with your Primary Doctor to be re checked, 3-5 days is a general good time frame for follow up. You are always welcome to return to the ED for re assessment if your symptoms are worsening or you have new concerns Coding Level of Care Code ED Water Fabricator Operator for Gallo Castellanos
[2024-03-10 01:17] VITALS: RESP 16; O2SAT 98
[2024-03-10] MEDS: HYDROmorphone 1 mg/mL INJ 1 mL 2 MG IM (01:17)
[2024-03-10] MEDS: orphenadrine 30 mg/mL Inj 2 mL 60 MG IM (01:20)
[2024-03-10] MEDS: ketorolac 60 mg/2 mL INJ IM (01:21)
[2024-03-10 01:25] VITALS: BP 135/110; PULSE 82; RESP 16; O2SAT 96
[2024-03-10 01:47] VITALS: BP 135/110; PULSE 84; RESP 16; O2SAT 96
== END 2024-03-10 01:49 | disposition home or self-care (01) ==
PROVIDERS: Emergency Provider Emergency Medicine; PCP Family Medicine
DX: G89.18 Other acute postprocedural pain (principal)
CPT/HCPCS: 96372; 99284; J1170; J1885; J2360

== ENCOUNTER 2024-03-12 21:22 | Emergency (ER) | payer MEDICARE, SELFPAY ==
--- NOTE | 2024-03-12 21:33 | XRR_ITS ---
PROCEDURE INFORMATION: Exam: XR Abdomen Exam date and time: 03/12/2024 10:03 PM Age: 53 years old Clinical indication: Prior surgery; Surgery date: <1 month; Patient HX: Constipation; Abd pain/distention; No bowel movement in 10+ days; Recent lumbar fusion TECHNIQUE: Imaging protocol: Radiologic exam of the abdomen. Views: Frontal supine view of the abdomen. 1 View. COMPARISON: CR XR KUB [id number] 01/30/2020 7:44 AM FINDINGS: Gastrointestinal tract: Moderate constipation without bowel dilation to indicate obstruction. Bones/joints: Lumbar spine surgical hardware. Right hip arthroplasty changes. Thoracolumbar spine dextrocurvature. XR/XR KUB [id number] IMPRESSION: 1. Moderate constipation without bowel dilation to indicate obstruction. 2. Lumbar spine surgical hardware. 3. Right hip arthroplasty changes. 4. Thoracolumbar spine dextrocurvature.
[2024-03-12 21:37] VITALS: BP 120/74; PULSE 94; RESP 16; TEMP 37; O2SAT 100; BMI 33.3
--- NOTE | 2024-03-12 22:37 | ED_ITS ---
HPI - Abdominal Pain General: Chief Complaint: Abdominal Pain Stated Complaint: No BM Post Surgery Time Seen by Provider: 03/12/24 22:36 History of Present Illness: 53-year-old female comes in today for co mplaints of abdominal pain and constipation. Patient had back surgery done at [facility] on 02 March. Patient reports no bowel movement since surgery. Patient appears nontoxic. Patient reports abdominal pain. Patient reports trying MiraLAX, milk of magnesia, and Colace with minimal to no relief. Related Data Home Medications Medication Instructions Recorded Confirmed chlorzoxazone 500 mg tablet 500 mg PO TID PRN Muscle Spasm 01/29/23 10/18/23 lamotrigine 200 mg tablet 200 mg PO DAILY 01/29/23 10/18/23 tizanidine 4 mg tablet 4 mg PO Q8H PRN Muscle Spasm 01/29/23 10/18/23 diclofenac potassium 50 mg tablet 50 mg PO BID 01/26/24 01/26/24 lisdexamfetamine 40 mg capsule 40 mg PO DAILY 01/26/24 01/26/24 (Vyvanse) meloxicam 15 mg tablet 15 mg PO DAILY 01/26/24 01/26/24 methocarbamol 750 mg tablet 750 mg PO ONCE 01/26/24 01/26/24 Previous Rx's Medication Instructions Recorded fluticasone propionate 50 2 spray intranasal DAILY #16 grams 06/02/23 mcg/actuation nasal spray,suspension (Flonase Allergy Relief) sulfamethoxazole 800 1 tab PO BID 7 days #14 tabs 01/26/24 mg-trimethoprim 160 mg tablet (Bactrim DS) Allergies Allergy/AdvReac Type Severity Reaction Status Date / Time Opioids - Morphine Analogues Allergy RASH Verified 03/10/24 01:09 Review of Systems General: Reports: 10 or more systems reviewed and unremarkable except in HPI and below GI: Reports: abdominal pain PFSH ED PFSH: Medical History (Updated 03/13/24 @ 00:54 by ANA MARÍA Hassan) Urgency incontinence Anxiety Depression Low back pain Surgical History Hx of oral surgery Hx of hand surgery History of back surgery Family History Other CAD (coronary artery disease) Cancer Diabetes Social History Smoking and tobacco/nicotine status: unknown if used tobacco/nicotine Alcohol intake: never Substance/Drug Use: current Adopted: No Caregiver/support person: No Lives independently: Yes Marital status: Single Current occupational status: disabled Current gender identity: Female Physical Exam Const: COMMON NORMALS: alert HENMT: COMMON NORMALS: normocephalic HEAD & SCALP: normocephalic Neck/C-Spine: COMMON NORMALS: full ROM Resp: COMMON NORMALS: normal respiratory effort and clear to auscultation bilaterally AUSCULTATION: clear to auscultation bilaterally Cardio: COMMON NORMALS: regular rate RATE: regular rate GI: COMMON NORMALS: Soft to palpation PALPATION: Yes Soft to palpation and No Tenderness to palpation present (GI) Extremity: COMMON NORMALS: normal to inspection Neuro: SENSORIUM/ORIENTATION: Yes alert Skin: COMMON NORMALS: turgor normal GENERAL SKIN EXAM: turgor normal Course Vital Signs: Vital signs: Vital Signs Temperature 98.6 F 03/12/24 21:37 Pulse Rate 91 03/13/24 00:35 Respiratory Rate 16 03/12/24 21:37 Blood Pressure 127/77 03/13/24 00:35 Pulse Oximetry 99 03/13/24 00:35 Oxygen Delivery Me thod Room Air 03/12/24 21:37 MDM - Abdominal Pain Medical Decision Making 53-year-old female comes in today with complaints of constipation. Patient appears nontoxic. Patient appears no acute distress. Respirations are even lungs are clear to auscultation. Abdomen soft with some minimal tenderness. No rebound tenderness. No guarding. Differential diagnosis includes constipation, malingering, bowel obstruction. KUB noted no obvious obstruction. Patient does have constipation. Patient was given 2 soapsuds enemas with good results after second enema. Patient had been given some Toradol and orphenadrine for complaints of back pain. Patient was discharged home with instructions for follow-up with primary care and surgeon for further recommendations. Recommended continuing MiraLAX and milk of magnesia otherwise. Lab Data Labs/Radiology: Radiology Impressions KUB X-Ray 03/12/24 21:33 IMPRESSION: 1. Moderate constipation without bowel dilation to indicate obstruction. 2. Lumbar spine surgical hardware. 3. Right hip arthroplasty changes. 4. Thoracolumbar spine dextrocurvature. All radiology interpretation(s) finalized by discharge Discharge Plan Discharge Patient Disposition: Home Clinical Impression: Constipation Qualifiers: Constipation type: drug induced constipation Qualified Code(s): K59.03 - Drug induced constipation Condition: Stable Prescriptions: No Action meloxicam 15 mg tablet 15 mg PO DAILY diclofenac potassium 50 mg tablet 50 mg PO BID methocarbamol 750 mg tablet 750 mg PO ONCE lisdexamfetamine [Vyvanse] 40 mg capsule 40 mg PO DAILY sulfamethoxazole-trimethoprim [Bactrim DS] 800-160 mg tablet 1 tab PO BID 7 Days Qty: 14 0RF fluticasone propionate [Flonase Allergy Relief] 50 mcg/actuation spray,suspension 2 spray intranasal DAILY Qty: 16 0RF Rx Instructions: administer into each nostril lamotrigine 200 mg Tablet 200 mg PO DAILY tizanidine 4 mg tablet 4 mg PO Q8H PRN (Reason: Muscle Spasm) chlorzoxazone 500 mg tablet 500 mg PO TID PRN (Reason: Muscle Spasm) Discharge Orders: Discharge ED (Routine); Ordered 03/13/24 Ordered By: Christ Starkey Referrals: Juan M Elder MD [Primary Care Provider] - Discharge Diet: Usual diet Discharge Activity: Increase activity as tolerated Patient Instructions: Constipation (ED) Activity Restrictions/Additional Instructions: Continue with MiraLAX 17 g, 1 capful, twice a day in 8 ounces of water. Use milk of magnesia as needed for further constipation. Drink plenty of water and fluids with medications follow-up with primary care for further instructions. Return to ED for new concerns. Coding Level of Care Code ED Hotel Services Supervisor for Gallo Castellanos
--- NOTE | 2024-03-12 23:56 | PC.NURSE ---
Half of enema resulted in one small round stool as well as liquid. Rest of soaps suds enema instilled.
--- NOTE | 2024-03-13 00:12 | PC.NURSE ---
Patient stated that she was in immense pain and stated that she would rather go home and take Valium. At least at home I can take Valium and pass out. This nurse spoke to BALBIR Starkey and informed him of what the patient stated. Order for pain meds put in, and nurse to instructed to repeat soap suds enema.
[2024-03-13] MEDS: ketorolac 30 mg/mL INJ IM (00:17)
[2024-03-13] MEDS: orphenadrine 30 mg/mL Inj 2 mL 60 MG IM (00:17)
[2024-03-13 00:35] VITALS: BP 127/77; PULSE 91; O2SAT 99
[2024-03-13 01:26] VITALS: BP 136/78; PULSE 88; O2SAT 100
--- NOTE | 2024-03-13 01:26 | PC.NURSE ---
Patient had a large BM with second soap suds enema and stated that she had significant relief. Jaky notified.
== END 2024-03-13 01:37 | disposition home or self-care (01) ==
PROVIDERS: Emergency Provider Nurse Practitioner Family; PCP Family Medicine
DX: K59.03 Drug induced constipation (principal)
CPT/HCPCS: 74018; 96372; 99284; J1885; J2360

== ENCOUNTER 2024-04-15 14:38 | Outpatient (CLI) | payer MEDICARE, SELFPAY ==
--- NOTE | 2024-04-15 14:49 | XR_ITS ---
WS: [id number] Lumbar spine, 3 views, 04/15/2024 Clinical Data: LUMBAR RADICULOPATHY Comparison: None. Findings: The lumbosacral posterior fusion from L4-S1 with bilateral pedicle screws and connecting rods is in g ood position. There are laminectomies at L4 and L5. 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 There is bony fusion on the right at L4-L5. There is a right hip arthroplasty. XR/XR lumbar spine 2-3V* [id number] Impression: Posterior lumbosacral fusion L4-S1.
== END 2024-04-15 14:39 | disposition home or self-care (01) ==
LOC: RAD 14:44
PROVIDERS: PCP Family Medicine; Visit Provider Nurse Practitioner Family
DX: M54.16 Radiculopathy, lumbar region (principal); M43.26 Fusion of spine, lumbar region
CPT/HCPCS: 72100

== ENCOUNTER 2024-07-26 14:13 | Emergency (ER) | payer MEDICARE, SELFPAY ==
[2024-07-26 14:19] VITALS: BP 136/88; PULSE 93; TEMP 36.7; O2SAT 100; BMI 36.0
--- NOTE | 2024-07-26 14:37 | W.ED.URI ---
HPI - URI/Sore Throat General: Chief Complaint: Upper Respiratory Infection Stated Complaint: ears stuffed, cough/congestion Time Seen by Provider: 07/26/24 14:16 Source: patient Mode of arrival: ambulatory Limitations: no limitations History of Present Illness: 53-year-old female presents to the ER with complaints of cough, congestion, ear pain. Patient states that the cough and congestion has been going on for about a week and a half. Patient states she has been having ear pain for about 3 months now and will be seeing ENT this upcoming . Patient also reports of having a productive cough, sinus pressure, nausea, constipation. Patient denies headaches, diarrhea, chest pain, shortness of breath. Patient admits to being around sick people and a baby that has also been sick. MD elicited complaint: cough, sore throat and sinus pain Onset (ago): week(s) Consistency: constant Severity: moderate Description of mucous: clear Able to tolerate fluids by mouth: Yes Exacerbating factors: nothing Relieving factors: nothing Context: sick contacts Associated symptoms: Deny abdominal pain, chills, chest pain, diarrhea, fever(s), headache(s), nausea or vomiting Treatments prior to arrival: none Related Data Home Medications ?Medication ?Instructions ?Recorded ?Confirmed chlorzoxazone 500 mg tablet 500 mg PO TID PRN Muscle Spasm 01/29/23 07/04/24 lamotrigine 200 mg tablet 200 mg PO DAILY 01/29/23 07/04/24 tizanidine 4 mg tablet 4 mg PO Q8H PRN Muscle Spasm 01/29/23 07/04/24 diclofenac potassium 50 mg tablet 50 mg PO BID 01/26/24 07/04/24 lisdexamfetamine 40 mg capsule 40 mg PO DAILY 01/26/24 07/04/24 (Vyvanse) meloxicam 15 mg tablet 15 mg PO DAILY 01/26/24 07/04/24 methocarbamol 750 mg tablet 750 mg PO ONCE 01/26/24 07/04/24 Previous Rx's ?Medication ?Instructions ?Recorded fluticasone propionate 50 2 spray intranasal DAILY #16 grams 06/02/23 mcg/actuation nasal spray,suspension (Flonase Allergy Relief) fexofenadine 60 mg-pseudoephedrine 1 tab PO Q12H PRN sinus symptoms 06/27/24 ER 120 mg tablet,ext.release,12 hr 14 days #30 tabs (Suzanna-D 12 Hour) amoxicillin 500 mg capsule 500 mg PO TID #30 caps 07/04/24 prednisone 20 mg tablet 40 mg (2 x 20 mg) PO DAILY 5 days 07/04/24 #10 tabs Allergies Allergy/AdvReac Type Severity Reaction Status Date / Time Opioids - Morphine Analogues Allergy RASH Verified 07/26/24 14:21 anti psychotics Allergy Dystnonia Uncoded 07/26/24 14:21 Review of Systems Const: Reports: body aches, change in appetite and fatigue; Denies: fever(s) or chills Eyes: Denies: change in vision or blurry vision ENMT: Reports: throat pain Card: Denies: chest pain or palpitations Resp: Reports: productive cough and chest congestion; Denies: dyspnea, wheezing or hemoptysis GI: Reports: constipation; Denies: abdominal pain, nausea, vomiting or diarrhea Musc: Denies: neck pain Neuro: Denies: headache(s) or dizziness PFSH ED PFSH: Medical History Seasonal allergies Chronic middle ear effusion Urgency incontinence Anxiety Depression Low back pain Surgical History Hx of oral surgery Hx of hand surgery History of back surgery Family History Other CAD (coronary artery disease) Cancer Diabetes Social History Smoking and tobacco/nicotine status: never used tobacco/nicotine Alcohol intake: never Substance/Drug Use: current Adopted: No Caregiver/support person: No Lives independently: Yes Marital status: Single Current occupational status: disabled Current gender identity: Female Physical Exam Const: COMMON NORMALS: no acute distress, average body habitus, no limitations, healthy appearing, alert and well nourished GENERAL APPEARANCE: cooperative HENMT: COMMON NORMALS: Normal external nose present FACE & SINUS: normal facial exam NOSE: Normal external nose present TYMPANIC MEMBRANE: TM abnormal TM laterality: bilateral wth effusion MOUTH: Normal oral and palatal mucosa present and lip normal THROAT: posterior oropharynx normal and tonsils normal Eye: GENERAL EYE: appearance normal, both eyes and all related structures Neck/C-Spine: COMMON NORMALS: no lymphadenopathy Resp: COMMON NORMALS: normal respiratory effort and clear to auscultation bilaterally AUSCULTATION: clear to auscultation bilaterally and no wheezes Cardio: COMMON NORMALS: regular rate and regular rhythm RATE: regular rate RHYTHM: regular rhythm Neuro: SENSORIUM/ORIENTATION: Yes alert Skin: COMMON NORMALS: no rashes or lesions noted GENERAL SKIN EXAM: no rashes or lesions noted Course Vital Signs: Vital signs: Vital Signs Temperature 98.0 F 07/26/24 14:19 Pulse Rate 93 07/26/24 14:19 Blood Pressure 136/88 07/26/24 14:19 Pulse Oximetry 100 07/26/24 14:19 Oxygen Delivery Me thod Room Air 07/26/24 14:19 MDM - URI/Sore Throat Medical Decision Making Patient reportedly eloped from the ED Medical Records I reviewed the patient's medical records. Lab Data Laboratory Results Coronavirus (PCR) Negative (Negative) 07/26/24 14:26 Influenza A (PCR) Negative (Negative) 07/26/24 14:26 Influenza Type B (PCR) Negative (Negative) 07/26/24 14:26 RSV (PCR) Negative (Negative) 07/26/24 14:26 No radiology studies performed this visit Discharge Plan Discharge Patient Disposition: Left Against Medical Advice Clinical Impression: Chronic middle ear effusion, Upper respiratory infection Condition: Stable Prescriptions: No Action meloxicam 15 mg tablet 15 mg PO DAILY diclofenac potassium 50 mg tablet 50 mg PO BID methocarbamol 750 mg tablet 750 mg PO ONCE lisdexamfetamine [Vyvanse] 40 mg capsule 40 mg PO DAILY fexofenadine-pseudoephedrine [Suzanna-D 12 Hour] 60-120 mg tablet extended release 12 hr 1 tab PO Q12H PRN (Reason: sinus symptoms) 14 Days Qty: 30 0RF prednisone 20 mg tablet 40 mg PO DAILY 5 Days Qty: 10 0RF amoxicillin 500 mg capsule 500 mg PO TID Qty: 30 0RF fluticasone propionate [Flonase Allergy Relief] 50 mcg/actuation spray,suspension 2 spray intranasal DAILY Qty: 16 0RF Rx Instructions: administer into each nostril lamotrigine 200 mg Tablet 200 mg PO DAILY tizanidine 4 mg tablet 4 mg PO Q8H PRN (Reason: Muscle Spasm) chlorzoxazone 500 mg tablet 500 mg PO TID PRN (Reason: Muscle Spasm) Referrals: Juan M Elder MD [Primary Care Provider] - Print Language: Niuean Coding Level of Care Code ED Dye Can Operator for Gallo Castellanos
[2024-07-26 15:43] LABS: Covid PCR NEGATIVE (Negative); Influenza A NEGATIVE (Negative); Influenza B NEGATIVE (Negative); Respiratory Syncytial Virus Ce NEGATIVE (Negative)
== END 2024-07-26 15:45 | disposition left against medical advice (07) ==
PROVIDERS: Emergency Provider Physician Assistant; PCP Family Medicine
DX: J06.9 Acute upper respiratory infection, unspecified (principal); Z11.52 Encounter for screening for COVID-19; H92.03 Otalgia, bilateral
CPT/HCPCS: 87637; 99283

== ENCOUNTER 2025-01-18 15:08 | Outpatient (CLI) | payer MEDICARE, SELFPAY ==
--- NOTE | 2025-01-18 15:18 | MM_ITS ---
WS: [id number] Bilateral screening 3D tomosynthesis digital mammogram, 01/18/2025 3:25 PM Clinical Data: SCREENING MAMMOGRAM Comparison: None. Findings: No spiculated masses or clustered calcifications are seen. There are no secondary signs of carcinoma. MM/MM scr BI tomosynthesis [id number] Impression: Negative bilateral mammogram with no prior exam for review. Recommend annual screening mammograms. BIRADS: 1 - Negative. FOLLOW UP: 1 Year Follow-up DENSITY: There are scattered areas of fibroglandular density. The CAD maturity checker was used
== END 2025-01-18 15:09 | disposition home or self-care (01) ==
LOC: RAD 15:09
PROVIDERS: PCP Family Medicine; Visit Provider Family Medicine
DX: Z12.31 Encounter for screening mammogram for malignant neoplasm of breast (principal)
CPT/HCPCS: 77063; 77067

== ENCOUNTER 2025-03-01 19:48 | Outpatient (CLI) | payer MEDICARE, SELFPAY | END 2025-03-01 19:49 | disposition home or self-care (01) | LOC: SLEEP 19:49 | PROVIDERS: PCP Family Medicine; Visit Provider Internal Medicine Pulmonary Disease | DX: G47.33 Obstructive sleep apnea (adult) (pediatric) (principal) | CPT/HCPCS: 95811 ==